=== PATIENT | female | born 1980 | race Caucasian/White ===

== ENCOUNTER → 2019-06-17 13:14 | Outpatient (CLI) | payer BC, SELFPAY ==
--- NOTE | 2019-06-17 13:45 | MRI_ITS ---
STUDY: MRI BRAIN WITH AND WITHOUT CONTRAST (ATTENTION INTERNAL AUDITORY CANALS - I.A.C.'s) REASON FOR EXAM: Female, 39 years old. Dizziness, headache, right hearing loss TECHNIQUE: Standardized multiplanar fat and water weighted pulse sequences were obtained. 13 IV Dotarem was administered for the contrast portion of the examination. COMPARISON: None. FINDINGS: Normal bilateral temporal bones. Normal bilateral internal auditory canals. There is no demonstrated intracanalicular or cisternal vestibular schwannoma (acoustic neuroma). There is no enhancement of the bilateral VIIth or VIIIth cranial nerves. Normal bilateral cochlea, vestibules and semicircular canals. Normal size of the ventricles and extra-axial spaces for the patient's age. Normal white matter tracts of the supratentorial brain. There is no evidence for recent intracranial ischemia or other cause of cytotoxic edema on diffusion weighted imaging (DWI). Normal bilateral basal ganglia. Normal thalami. Normal flow voids within the major intracranial circulation suggesting patency by spin echo criteria. Normal venous enhancement. There is no enhancing intra-axial or extra-axial abnormality. There is no extra-axial fluid accumulation. Normal sella turcica, pituitary gland, infundibular stalk, optic chiasm and hypothalamus. Normal tectal plate and pineal gland. Normal midbrain, rory and medulla. Normal cerebellum. Normal basal cisterns. No demonstrated orbital abnormality, within the constraints of a routine brain study. Normal visualized paranasal sinuses. Normal calvarium and skull base. Normal visualized soft tissue structures. Normal visualized upper cervical spine. MRI/Brain W/WO Contrast IMPRESSION: Normal unenhanced and enhanced MRI of the bilateral internal auditory canals (I.A.C's). Electronically Signed: Marco Santiago MD at 16:36 EDT Tel , Service support ,
== END ==
PROVIDERS: Family Provider Preventive Medicine Occupational Medicine; PCP Preventive Medicine Occupational Medicine; Referring Provider Otolaryngology; Visit Provider Otolaryngology
DX: R42 Dizziness and giddiness (principal)
CPT/HCPCS: 70553; A9575

== ENCOUNTER → 2020-10-23 11:19 | Outpatient (CLI) | payer OTHER, SELFPAY ==
[2020-10-23 11:12] VITALS: BMI 23.1
[2020-10-23 12:56] LABS: Absolute Lymphocyte Count 1.71 X10^3/uL (0.83-4.51); Absolute Neutrophil Count 2.8 X10^3/uL (2.0-7.7); Basophil# 0.05 X10^3/uL; Eosinophil# 0.21 X10^3/uL; Hematocrit 42.6 % (37-47); Lymphocyte # 1.71 X10^3/ul (4.0); Lymphocyte % 32.6 % (19-41); Mean Corp Hgb Conc 32.9 g/dL (32-36); Mean Corpuscular Hgb 29.5 pg (27.0-32.0); Mean Corpuscular Volume 89.7 fL (81-99); Mean Platelet Vol. 11.1 fl (6.2-12.0); Monocyte# 0.47 X10^3/uL; NRBC Flagged by Analyzer 0 % (0-5); Neutrophil % 53.4 % (47-70); Platelet Count 330 K/mm3 (150-450); RBC Distribution Width CV 12.3 % (11.6-14.6); RBC Distribution Width SD 41.1 fl (35.1-43.9); Red Blood Count 4.75 M/mm3 (4.2-5.4); White Blood Count 5.2 K/mm3 (4.4-11.0)
[2020-10-23 13:29] LABS: ALB/GLOB Ratio 1.1 RATIO (0.9-2.4); AST(SGOT) 15 U/L (15-37); Alanine Aminotransfer ALT/SGPT 16 U/L (13-56); Albumin, Serum 4.1 g/dL (3.2-5.0); Alkaline Phosphatase 60 U/L (45-117); Anion Gap 2 (5-15); BUN 11 mg/dL (7-18); BUN/Creat Ratio 11.2 RATIO (10-20); Calcium,Total 8.9 mg/dL (8.5-10.1); Chloride 109 mmol/L (98-107); Creatinine, Serum 0.98 mg/dL (0.55-1.02); EST Glomerular Filtration Rate 66 mL/min (>60); Est Glom Filt Rate - Afr Amer 79 mL/min (>60); Globulin 3.6 g/dL (2.2-4.2); Glucose 79 mg/dL (74-106); Potassium 3.9 mmol/L (3.5-5.1); Protein, Total 7.7 g/dL (6.4-8.2); Sodium Level 140 mmol/L (136-145); T4 Free Direct 0.86 ng/dL (0.76-1.46); Thyroid Stim Hormone (TSH) 1.07 uIU/mL (0.358-3.74)
== END ==
PROVIDERS: PCP Internal Medicine; Referring Provider Internal Medicine; Visit Provider Internal Medicine
DX: F32.9 Major depressive disorder, single episode, unspecified (principal); F41.9 Anxiety disorder, unspecified
CPT/HCPCS: 36415; 80053; 84439; 84443; 85025

== ENCOUNTER 2020-12-28 14:49 | Outpatient (RCR) | payer OTHER, SELFPAY ==
[2020-10-23 11:12] VITALS: BMI 23.1
== END 2021-03-12 23:59 ==
LOC: IMMUN 14:49
PROVIDERS: PCP Internal Medicine; Visit Provider Family Medicine
DX: Z23 Encounter for immunization (principal)
CPT/HCPCS: 0001A; 0002A; 91300

== ENCOUNTER → 2021-05-08 15:48 | Outpatient (CLI) | payer OTHER, SELFPAY ==
[2021-05-08 15:25] VITALS: BMI 24.0
--- NOTE | 2021-05-08 16:18 | RAD_ITS ---
STUDY: X-RAY - CERVICAL SPINE REASON FOR EXAM: Female, 41 years old. Cervical radiculopathy TECHNIQUE: 3 view(s) of the cervical spine were obtained. COMPARISON: None FINDINGS: Normal anterior atlantoaxial articulation. Normal odontoid process. Normal cervical lordosis. Normal vertebral bodies and endplates. Normal disc space heights. Normal visualized intervertebral neuroforamina. The soft tissue structures are unremarkable. RAD/Cerv Spine 2 or 3 Views IMPRESSION: Normal x-ray examination of the visualized cervical spine. Electronically Signed: Emiele Veloz MD at 13:44 EDT Tel , Service support ,
--- NOTE | 2021-05-08 16:20 | RAD_ITS ---
STUDY: X-RAY - RIGHT SHOULDER REASON FOR EXAM: Female, 41 years old. Right Shoulder Pain TECHNIQUE: 4 view(s) of the shoulder. COMPARISON: None. FINDINGS: Normal glenohumeral articulation. Normal acromioclavicular joint. Normal acromion. Normal humeral head and visualized proximal humerus. The soft tissue structures are unremarkable. Normal visualized pulmonary apex. RAD/Shoulder min 2 Views IMPRESSION: Normal x-ray examination of the shoulder. Electronically Signed: Emilee Vleoz MD at 13:45 EDT Tel , Service support ,
[2021-05-08 17:02] LABS: Absolute Lymphocyte Count 1.45 X10^3/uL (0.83-4.51); Absolute Neutrophil Count 3.9 X10^3/uL (2.0-7.7); Basophil# 0.05 X10^3/uL; Basophil% 0.8 % (0-1); Eosinophil# 0.08 X10^3/uL; Eosinophils% 1.4 % (0-5); Hematocrit 38.6 % (37-47); Hemoglobin 12.7 g/dL (12.0-15.0); Lymphocyte # 1.45 X10^3/ul (0.83-4.51); Lymphocyte % 24.5 % (19-41); Mean Corp Hgb Conc 32.9 g/dL (32-36); Mean Corpuscular Hgb 29.7 pg (27.0-32.0); Mean Corpuscular Volume 90.4 fL (81-99); Mean Platelet Vol. 10.9 fl (6.2-12.0); Monocyte# 0.46 X10^3/uL; Monocyte% 7.8 % (0-10); NRBC Flagged by Analyzer 0 % (0-5); Neutrophil # 3.86 X10^3/uL (2.7-7.7); Neutrophil % 65.2 % (47-70); Platelet Count 316 K/mm3 (150-450); RBC Distribution Width CV 12.7 % (11.6-14.6); RBC Distribution Width SD 41.8 fl (35.1-43.9); Red Blood Count 4.27 M/mm3 (4.2-5.4); White Blood Count 5.9 K/mm3 (4.4-11.0)
[2021-05-08 17:30] LABS: ALB/GLOB Ratio 1.4 RATIO (0.9-2.4); AST(SGOT) 19 U/L (15-37); Alanine Aminotransfer ALT/SGPT 21 U/L (13-56); Albumin, Serum 4.2 g/dL (3.2-5.0); Alkaline Phosphatase 62 U/L (45-117); Anion Gap 6 (5-15); BUN 13 mg/dL (7-18); BUN/Creat Ratio 13.1 RATIO (10-20); Calcium,Total 8.6 mg/dL (8.5-10.1); Chloride 108 mmol/L (98-107); Creatinine, Serum 0.99 mg/dL (0.55-1.02); EST Glomerular Filtration Rate 65 mL/min (>60); Est Glom Filt Rate - Afr Amer 78 mL/min (>60); Globulin 3.1 g/dL (2.2-4.2); Glucose 83 mg/dL (74-106); Potassium 3.3 mmol/L (3.5-5.1); Protein, Total 7.3 g/dL (6.4-8.2); Sodium Level 139 mmol/L (136-145)
== END ==
PROVIDERS: PCP Internal Medicine; Referring Provider Internal Medicine; Visit Provider Internal Medicine
DX: M54.12 Radiculopathy, cervical region (principal); M25.511 Pain in right shoulder; F32.9 Major depressive disorder, single episode, unspecified; F41.9 Anxiety disorder, unspecified
CPT/HCPCS: 36415; 72040; 73030; 80053; 85025

== ENCOUNTER → 2021-05-23 16:08 | Outpatient (CLI) | payer OTHER, SELFPAY ==
[2021-05-08 15:25] VITALS: BMI 24.0
--- NOTE | 2021-05-23 16:11 | BI_ITS ---
MAMMOGRAPHY - BILATERAL SCREENING REASON FOR EXAM: Female, 41 years old. Routine annual screening examination. PERTINENT HISTORY: Grandmother with breast cancer. Occasional lateral left breast tenderness. TECHNIQUE: Digital bilateral breast anshu (3D mammographic acquisition) in the CC and MLO projections. 2-D mediolateral oblique (MLO) and craniocaudad (CC) views of both breasts were obtained. CAD: Full Field Digital Mammography with Computer Added Detection was performed. COMPARISON: Comparison is made with prior study dated 01/21/2017. FINDINGS: Breast Composition: The breasts are heterogeneously dense, which may obscure small masses. There are no dominant masses or suspicious calcifications. Stable small benign appearing bilateral axillary lymph nodes. No other significant abnormalities are identified. There has been no significant change since the prior study. BI/SCRN MAMM (CAD)W/ANSHU BILAT IMPRESSION: Stable bilateral screening mammogram. Yearly follow-up mammogram recommended. (A) ASSESSMENT CATEGORY: BIRADS Category 2: Benign. A letter regarding these results will be sent to the patient by the facility within 30 days. Approximately 10% of breast cancers are not detected by mammography. A normal mammogram should not delay biopsy of a clinically suspicious abnormality. [id number] Electronically Signed: Toni Simon MD at 8:24 EDT , Service support ,
== END ==
PROVIDERS: PCP Internal Medicine; Referring Provider Internal Medicine; Visit Provider Internal Medicine
DX: Z12.31 Encounter for screening mammogram for malignant neoplasm of breast (principal); Z80.3 Family history of malignant neoplasm of breast
CPT/HCPCS: 77063; 77067

== ENCOUNTER → 2021-08-14 16:21 | Outpatient (CLI) | payer OTHER, SELFPAY ==
[2021-08-14 18:17] LABS: Anion Gap 6 (5-15); BUN 7 mg/dL (7-18); BUN/Creat Ratio 7.1 RATIO (10-20); Chloride 106 mmol/L (98-107); Creatinine, Serum 0.99 mg/dL (0.55-1.02); EST Glomerular Filtration Rate 65 mL/min (>60); Est Glom Filt Rate - Afr Amer 79 mL/min (>60); Glucose 79 mg/dL (74-106); Potassium 3.5 mmol/L (3.5-5.1); Sodium Level 139 mmol/L (136-145)
== END ==
PROVIDERS: PCP Internal Medicine; Referring Provider Internal Medicine; Visit Provider Internal Medicine
DX: E87.6 Hypokalemia (principal)
CPT/HCPCS: 36415; 80048

== ENCOUNTER → 2021-09-04 | Outpatient (CLI) | payer OTHER, SELFPAY | END | disposition home or self-care (01) | LOC: LABSPEC 13:03 | PROVIDERS: PCP Internal Medicine; Visit Provider Physician Assistant | DX: Z11.52 Encounter for screening for COVID-19 (principal) | CPT/HCPCS: 87635; U0005; U0003 ==

== ENCOUNTER → 2022-02-25 | Outpatient (CLI) | payer BC, OTHER, SELFPAY ==
[2022-02-25 16:34] LABS: Absolute Lymphocyte Count 1.82 X10^3/uL (0.83-4.51); Absolute Neutrophil Count 3.3 X10^3/uL (2.0-7.7); Basophil# 0.04 X10^3/uL; Basophil% 0.7 % (0-1); Eosinophil# 0.12 X10^3/uL; Eosinophils% 2.1 % (0-5); Hematocrit 38.8 % (37-47); Hemoglobin 12.8 g/dL (12.0-15.0); Lymphocyte # 1.82 X10^3/ul (0.83-4.51); Lymphocyte % 31.7 % (19-41); Mean Corpuscular Hgb 30.2 pg (27.0-32.0); Mean Corpuscular Volume 91.5 fL (81-99); Mean Platelet Vol. 10.9 fl (6.2-12.0); Monocyte# 0.42 X10^3/uL; Monocyte% 7.3 % (0-10); NRBC Flagged by Analyzer 0 % (0-5); Neutrophil # 3.33 X10^3/uL (2.7-7.7); Platelet Count 304 K/mm3 (150-450); RBC Distribution Width CV 12.3 % (11.6-14.6); RBC Distribution Width SD 40.9 fl (35.1-43.9); Red Blood Count 4.24 M/mm3 (4.2-5.4); White Blood Count 5.7 K/mm3 (4.4-11.0)
[2022-02-25 20:57] LABS: ALB/GLOB Ratio 1.1 RATIO (0.9-2.4); AST(SGOT) 20 U/L (15-37); Alanine Aminotransfer ALT/SGPT 18 U/L (13-56); Albumin, Serum 3.9 g/dL (3.2-5.0); Alkaline Phosphatase 60 U/L (45-117); Anion Gap 7 (5-15); BUN 10 mg/dL (7-18); BUN/Creat Ratio 8.8 RATIO (10-20); Calcium,Total 8.8 mg/dL (8.5-10.1); Chloride 107 mmol/L (98-107); Creatinine, Serum 1.13 mg/dL (0.55-1.02); EST Glomerular Filtration Rate 56 mL/min (>60); Est Glom Filt Rate - Afr Amer 67 mL/min (>60); Globulin 3.4 g/dL (2.2-4.2); Glucose 113 mg/dL (74-106); Potassium 3.5 mmol/L (3.5-5.1); Protein, Total 7.3 g/dL (6.4-8.2); Sodium Level 140 mmol/L (136-145); T4 Free Direct 0.77 ng/dL (0.76-1.46); Thyroid Stim Hormone (TSH) 1.14 uIU/mL (0.358-3.74)
== END | disposition home or self-care (01) ==
LOC: BIMLAB 15:26
PROVIDERS: PCP Internal Medicine; Referring Provider Internal Medicine; Visit Provider Internal Medicine
DX: R53.82 Chronic fatigue, unspecified (principal); Z13.29 Encounter for screening for other suspected endocrine disorder
CPT/HCPCS: 36415; 80053; 84439; 84443; 85025

== ENCOUNTER → 2022-04-01 | Outpatient (CLI) | payer OTHER, SELFPAY ==
[2022-04-01 16:42] LABS: Anion Gap 5 (5-15); BUN 15 mg/dL (7-18); BUN/Creat Ratio 14.6 RATIO (10-20); Calcium,Total 8.9 mg/dL (8.5-10.1); Chloride 107 mmol/L (98-107); Creatinine, Serum 1.03 mg/dL (0.55-1.02); EST Glomerular Filtration Rate 62 mL/min (>60); Est Glom Filt Rate - Afr Amer 75 mL/min (>60); Glucose 98 mg/dL (74-106); Potassium 3.6 mmol/L (3.5-5.1); Sodium Level 139 mmol/L (136-145)
== END | disposition home or self-care (01) ==
PROVIDERS: PCP Internal Medicine; Referring Provider Internal Medicine; Visit Provider Internal Medicine
DX: N17.9 Acute kidney failure, unspecified (principal)
CPT/HCPCS: 36415; 80048

== ENCOUNTER → 2022-05-27 | Outpatient (CLI) | payer OTHER, SELFPAY ==
--- NOTE | 2022-05-27 15:34 | BI_ITS ---
MAMMOGRAPHY - BILATERAL SCREENING REASON FOR EXAM: Female, 42 years old. Routine annual screening examination. PERTINENT HISTORY: Grandmother with breast cancer. TECHNIQUE: Digital bilateral breast anshu (3D mammographic acquisition) in the CC and MLO projections. 2-D mediolateral oblique (MLO) and craniocaudad (CC) views of both breasts were obtained. CAD: Full Field Digital Mammography with Computer Added Detection was performed. COMPARISON: Comparison is made with prior study 05/23/2021 and 01/21/2017. FINDINGS: Breast Composition: The breasts are heterogeneously dense, which may obscure small masses. There are no dominant masses or suspicious calcifications. Stable small benign-appearing bilateral axillary lymph nodes. No other significant abnormalities are identified. There has been no significant change since the prior study. BI/SCRN MAMM (CAD)W/ANSHU BILAT IMPRESSION: Stable bilateral screening mammogram. Yearly follow-up mammogram recommended. (A) ASSESSMENT CATEGORY: BIRADS Category 2: Benign. A letter regarding these results will be sent to the patient by the facility within 30 days. Approximately 10% of breast cancers are not detected by mammography. A normal mammogram should not delay biopsy of a clinically suspicious abnormality. [id number] Electronically Signed: Toni Simon MD at 7:58 EDT ,
== END | disposition home or self-care (01) ==
LOC: OPBI 15:32
PROVIDERS: PCP Internal Medicine; Visit Provider Internal Medicine
DX: Z12.31 Encounter for screening mammogram for malignant neoplasm of breast (principal); Z80.3 Family history of malignant neoplasm of breast
CPT/HCPCS: 77063; 77067

== ENCOUNTER 2022-12-29 14:03 | Emergency (ER) | payer OTHER, SELFPAY ==
[2022-12-29 14:04] VITALS: BP 151/105; PULSE 109; RESP 22; TEMP 36.8; O2SAT 99; BMI 25.9
[2022-12-29] MEDS: Ketorolac 15 MG/ML Vial IV (16:30)
[2022-12-29 16:49] LABS: Absolute Lymphocyte Count 1.17 X10^3/uL (0.83-4.51); Absolute Neutrophil Count 3.2 X10^3/uL (2.0-7.7); Basophil# 0.04 X10^3/uL; Basophil% 0.8 % (0-1); Eosinophil# 0.18 X10^3/uL; Eosinophils% 3.6 % (0-5); Hematocrit 40.2 % (37-47); Hemoglobin 13.5 g/dL (12.0-15.0); Lymphocyte # 1.17 X10^3/ul (0.83-4.51); Lymphocyte % 23.3 % (19-41); Mean Corp Hgb Conc 33.6 g/dL (32-36); Mean Corpuscular Hgb 29.8 pg (27.0-32.0); Mean Corpuscular Volume 88.7 fL (81-99); Mean Platelet Vol. 9.8 fl (6.2-12.0); Monocyte# 0.44 X10^3/uL; Monocyte% 8.7 % (0-10); NRBC Flagged by Analyzer 0 % (0-5); Neutrophil # 3.19 X10^3/uL (2.7-7.7); Neutrophil % 63.4 % (47-70); Platelet Count 316 K/mm3 (150-450); RBC Distribution Width CV 12.1 % (11.6-14.6); RBC Distribution Width SD 39.5 fl (35.1-43.9); Red Blood Count 4.53 M/mm3 (4.2-5.4)
[2022-12-29 16:57] LABS: Anion Gap 3 (5-15); BUN 12 mg/dL (7-18); BUN/Creat Ratio 12.3 RATIO (10-20); Calcium,Total 8.7 mg/dL (8.5-10.1); Chloride 111 mmol/L (98-107); Creatinine, Serum 0.97 mg/dL (0.55-1.02); EST Glomerular Filtration Rate 66 mL/min (>60); Est Glom Filt Rate - Afr Amer 80 mL/min (>60); Estimated Creatinine Clearance 69.29 ml/min; Glucose 82 mg/dL (74-106); Potassium 3.8 mmol/L (3.5-5.1); Sodium Level 141 mmol/L (136-145)
[2022-12-29] MEDS: Morphine 4 MG/ML Syringe IV (18:12)
--- NOTE | 2022-12-29 18:32 | MRI_ITS ---
EXAM: MR HEAD WITHOUT AND WITH INTRAVENOUS CONTRAST CLINICAL INDICATION: Headache, blurred vision, paresthesia right, probl -- Also problem with balance TECHNIQUE: Multiplanar and multisequence MR images of the brain were obtained without and with intravenous contrast. This report was created using [employer] report generation technology. CONTRAST: IV CLARISCAN 14mL COMPARISON: 06.17.19 FINDINGS: BRAIN AND EXTRA-AXIAL SPACES: Unremarkable. No intra- or extra-axial hemorrhage. No evidence of acute infarct. No intracranial mass or mass effect. There is preservation of the juan/white matter interface. Posterior fossa structures are unremarkable. Ventricles are appropriate for age. No hydrocephalus. Basal cisterns are patent. SELLA: Unremarkable. Normal sella turcica, pituitary gland, infundibular stalk, optic chiasm and hypothalamus. AUDITORY SYSTEM: Unremarkable. The internal auditory canals are patent. BONES/JOINTS: Unremarkable. No discrete lytic or blastic abnormalities. SINUSES: Unremarkable as visualized. Clear. MASTOID AIR CELLS: Unremarkable as visualized. Clear. ORBITS: Unremarkable as visualized. Both globes, extraocular muscles, optic nerves and retrobulbar fat appear unremarkable. VASCULATURE: Unremarkable as visualized. Normal flow voids in the major intracranial circulation. MRI/Brain W/WO Contrast IMPRESSION: Negative MRI brain without and with intravenous contrast. Electronically Signed: Ed Angel MD at 19:49 EDT ,
--- NOTE | 2022-12-29 18:49 | EDS_ITS ---
HPI History of Present Illness Chief Complaint: Headache Detail of Chief Complaint: Global headache with blurred vision, numbness right side of face and arm Informant: patient and parent Onset/Context/Timing Onset: Days (Onset last Thursday) Context: Gradual Timing: Continuous and Waxes and wanes Quality -Headache: Positive for Dull and Throbbing Location: Global Current Severity: Severe Maximum Severity: Severe Worsened by: Nothing Relieved by: Nothing Associated Symptoms/Injury Associated Symptoms: Positive for Nausea, Numbness, Tingling and Blurred Vision; Negative for Fever, Vomiting, Sore Throat, Sinus Pressure, Preceding Aura, Visual Changes, Photophobia or Visual Loss Injury - MARTINEZ: Negative for Direct Trauma Narrative Narrative: Patient is a 42-year-old woman with history of migraine headaches. She took her medication for migraine on Thursday with no relief. She repeated the dose 2 days later. On Thursday she was seen in urgent care. She was treated with high dose of ibuprofen and Benadryl. She contacted the urgent care provider on Thursday who prescribed a muscle relaxant. She called back and states she still has a headache. She was instructed to come to the emergency department. Patient's never had imaging to evaluate her diagnosis of migraine headaches. She has never had bilateral blurred vision or tingling right side of face and right arm.. She also reports problems with balance the past couple of days. She denies trouble with speech or swallowing. She does report tinnitus bilate rally. She denies neck pain or neck stiffness. She denies photophobia or sonophobia. She does endorse nausea. She denies vomiting or diarrhea. She denies history of trauma. She has not noted a rash. Prior similar symptoms: No Recent Illness/Hospitalization: Yes [facility] Medical History CLAUDIA (acute kidney injury) Anxiety Cervical radiculopathy Chronic fatigue Depression Elevated blood pressure reading Endometriosis Health care maintenance History of gestational diabetes History of spontaneous Hypoglycemia Hypokalemia Migraines Right shoulder pain Screening for thyroid disorder Vitamin deficiency Home Medications alprazolam 0.25 mg tablet (Xanax) 0.25 mg PO DAILY PRN anxiety #30 tabs 02/12/22 [Rx Last Taken Unknown] amitriptyline 25 mg tablet 25 mg PO DAILY #90 tabs 02/12/22 [Rx Last Taken Unknown] paroxetine HCl 20 mg tablet (Paxil) 20 mg PO DAILY #90 tabs 02/12/22 [Rx Last Taken Unknown] topiramate 50 mg tablet 50 mg PO QHS #90 tabs 02/12/22 [Rx Last Taken Unknown] rizatriptan 10 mg tablet 10 mg PO ONCE PRN migraine headache #14 tabs 04/14/22 [Rx Last Taken Unknown] naproxen 500 mg tablet 500 mg PO BID PRN migraine headache #180 tabs 12/29/22 [Rx Last Taken Unknown] Allergy/AdvReac Type Severity Reaction Status Date / Time Penicillins Allergy Hives Verified 12/29/22 14:07 Family History Grandmother Breast cancer Father Anxiety and depression Diabetes Sister Cancer leukemia Mother Diabetes Hypertension Kidney disease Hyperlipemia CVA (cerebral vascular accident) Other Migraines Surgical History History of partial hysterectomy History of varicose vein stripping Social History Smoking Status: Current every day smoker tobacco type: cigarettes Tobacco: How many years used: 22 alcohol intake: current alcohol intake frequency: a few times a month Alcohol type: wine substance use type: does not use what type of physical activity do you participate in: walking frequency: 1-2 times per week ROS ROS ED Constitutional Constitutional ED: Denies chills, fever(s), subjective, sweats or weight loss Eyes Eyes: Reports blurry vision bilateral; Denies change in vision or diplopia ENT ENT ED: Reports other Details: Bilateral tinnitus ; Denies ear pain, rhinorrhea or sore throat Cardiovascular Cardiovascular: Denies chest pain, orthopnea, palpitations, paroxysmal nocturnal dyspnea or racing heartbeat Respiratory/Chest Respiratory/Chest: Denies cough, dyspnea, dyspnea on exertion, orthopnea, p aroxysmal nocturnal dyspnea or sputum Gastrointestinal Gastrointestinal: Reports nausea; Denies abdominal pain, constipation, diarrhea, melena or vomiting Genitourinary Genitourinary ED: Reports other Details: Status post hysterectomy and bilateral salpingectomy ; Denies dysuria, hematuria or urinary frequency Musculoskeletal Musculoskeletal: Denies arthralgias, back pain, myalgias or neck pain Integumentary Denies abscess, Abrasions or rash Neurologic Neurologic: Reports headache(s) and paresthesias; Denies weakness Psychiatric Psychiatric: Denies anxiety or depression Endocrine Endocrinology: Denies polydipsia, polyphagia or polyuria EXAM Physical Exam Const Vital Signs: 12/29/22 14:04 12/29/22 21:00 Temperature 98.2 F Temperature Source Temporal Pulse Rate 109 H 87 Respiratory Rate 22 H 18 Blood Pressure 151/105 H 144/72 H Blood Pressure Mean 120 96 Pulse Ox 99 97 Oxygen Delivery Method Room Air Room Air Positive well nourished and well developed General Appearance ED: well developed and NAD; Negative for cyanotic, diaphoretic or pallor HEENT Reports normocephalic, TM's clear and moist mucous membranes HEENT Narrative: Nares patent with no discharge. Posterior pharynx is normal. atraumatic; Negative for temporal artery tenderness or vesicular rash Face and Sinus: Negative for sinus tenderness Tympanic Membrane ED: Yes TM's clear Eyes PERRL Eyes Narrative: There is no photophobia. Cup-to-disc ratio was normal. There is no papilledema. There is no nystagmus. General Eye ED: Negative for pale conjunctiva or scleral icterus Neck no lymphadenopathy, supple, no meningeal signs and no JVD Resp normal respiratory effort and clear to auscultation bilaterally Cardio regular rate, regular rhythm, S1 normal heart sound, S2 normal heart sound and no murmurs GI non-tender Auscultation: normoactive bowel sounds Palpation: soft; Negative for hepatomegaly or splenomegaly Back/Spine no CVA tenderness Cervical Spine: Negative for cervical spine tenderness Thoracic Spine / Upper Back: Negative for thoracic spinal tenderness Lumbar Spine / Lower Back: Negative for lumbar spinal tenderness Extremity normal to inspection, full ROM and normal capillary refill General Extremety ED: Negative for edema or tenderness General Extremity: Negative for edema Neuro oriented x3, CN's II-XII intact bilaterally and no sensory deficits noted Neuro Narrative: Romberg with eyes open and closed normal. The eye askew test was negative. The hints test was negative. Gait observed and normal. Able to walk on heels and toes. Patient did have mild difficulty with tandem gait. Gait was not aced. DTRs 2-3+ bicep, brachialis, triceps, patella and ankle and symmetric. There wa s no clonus or Babinski side noted right or left. [place] Coma Scale: document GCS findings Spontaneous Obeys Commands Oriented 15 Sensorium / Orientation: awake and alert Speech: speech normal Gait (Neuro): normal gait Motor Exam: strength 5/5 throughout Psych mental status grossly normal Skin General Skin Exam: elasticity normal and turgor normal; Negative for jaundice or pallor Lesions: no lesions Rashes: no rashes MDM MDM MDM Narrative Medical decision making narrative: Frontal diagnosis would include ocular migraine, neurologic migraine, doubt sinusitis. Need to consider brain mass. Doubt subarachnoid hemorrhage. Appr opriate blood work was ordered. CT was not ordered. Ordered an MRI with and without contrast. History & Record Review Discussion w/independent historian: Patient and Significant other Additional record(s) reviewed:: Prior outpatient record (Records from urgent care were reviewed. What patient told me is what was documented.) Lab Data Attestation: I reviewed the patient's lab results. Lab results narrative: Blood work is unremarkable. Labs: Laboratory Results - last 24 hr 12/29/22 12/29/22 16:25 16:25 WBC 5.0 RBC 4.53 Hgb 13.5 Hct 40.2 MCV 88.7 MCH 29.8 MCHC 33.6 RDW Std Deviation 39.5 RDW Coeff of Jonny 12.1 Plt Count 316 MPV 9.8 Immature Gran % (Auto) 0.200 Neut % (Auto) 63.4 Lymph % (Auto) 23.3 [place] % (Auto) 8.7 Eos % (Auto) 3.6 Baso % (Auto) 0.8 Absolute Neuts (auto) 3.2 Absolute Lymphs (auto) 1.17 Nucleated RBC % 0 Sodium 141 Potassium 3.8 Chloride 111 H Carbon Dioxide 27.0 Anion Gap 3 L BUN 12 Creatinine 0.97 Estim Creat Clear Calc 69.29 Est GFR (MDRD) Af Amer 80 Est GFR (MDRD) Non-Af 66 BUN/Creatinine Ratio 12.3 Glucose 82 Calcium 8.7 Radiography Diagnostic Testing: Clinical Impression(s) from Imaging Studies Brain MRI 12/29/22 18:32 IMPRESSION: Negative MRI brain without and with intravenous contrast. Electronically Signed: Ed Angel MD at 19:49 EDT , Treatment and Re-Evaluation Narrative: With a negative MRI with and without contrast suspect this is an intractable status migraine with paresis and ocular involvement. Will reevaluate to determine if patient needs more medication for headache. Patient states her headache has returned. She did have resolution after morphi ne. This may be a rebound headache from opiates. Now knowing that her MRI is unremarkable she will receive 25 mg of Benadryl IV push and 10 mg of Reglan IV push I was informed at 5104 the patient's headache resolved and she would like to go home. Discharge Plan Triage Chief Complaint: Headache ED Provider: Dwight Villa Dx/Rx/DC Orders Clinical Impression: Ocular migraine with status migrainosus, not intractable, Paresthesia of arm, Facial paresthesia Instructions: ED, Migraine (Classical) Prescriptions: No Action paroxetine HCl [Paxil] 20 mg tablet 20 mg PO DAILY Qty: 90 2RF amitriptyline 25 mg tablet 25 mg PO DAILY Qty: 90 2RF topiramate 50 mg tablet 50 mg PO QHS Qty: 90 2RF alprazolam [Xanax] 0.25 mg tablet 0.25 mg PO DAILY PRN (Reason: anxiety) Qty: 30 0RF rizatriptan 10 mg tablet 10 mg PO ONCE PRN (Reason: migraine headache) Qty: 14 2RF Rx Instructions: may repeat once after at least 2 hours naproxen 500 mg tablet 500 mg PO BID PRN (Reason: migraine headache) Qty: 180 2RF Primary Care Provider: Jaleel Martell Referrals: Jaleel Martell MD [Primary Care Provider] - 3-5 Days Disposition Disposition: Home, Self Care
[2022-12-29 21:00] VITALS: BP 144/72; PULSE 87; RESP 18; O2SAT 97
[2022-12-29] MEDS: Metoclopramide 10 MG/2 ML Vial IV (21:05)
[2022-12-29] MEDS: DiphenhydrAMINE 50 MG/ML Syringe 25 MG IV (21:05)
[2022-12-29 23:00] VITALS: PULSE 77; RESP 16; O2SAT 99
== END 2022-12-29 23:03 | disposition home or self-care (01) ==
PROVIDERS: Emergency Provider Emergency Medicine; PCP Internal Medicine; Visit Provider Emergency Medicine
DX: G43.901 Migraine, unspecified, not intractable, with status migrainosus (principal); R20.2 Paresthesia of skin; F17.210 Nicotine dependence, cigarettes, uncomplicated
CPT/HCPCS: 70553; 80048; 85025; 96374; 96375; 99283; A9575; A4216

== ENCOUNTER → 2023-06-22 | Outpatient (CLI) | payer OTHER, SELFPAY ==
--- NOTE | 2023-06-22 14:16 | RAD_ITS ---
STUDY: X-RAY - LEFT WRIST REASON FOR EXAM: Female, 43 years old. Left wrist pain TECHNIQUE: 3 view(s) of the wrist were obtained. COMPARISON: None. FINDINGS: Normal visualized distal radius and ulna. Findings suggestive of an old avulsion fracture of the ulnar styloid. Normal radiocarpal articulation. Normal distal radioulnar articulation. Normal carpal bones. Normal carpal articulations. Normal carpometacarpal articulation of the thumb. Normal second through fifth carpometacarpal articulations. Normal visualized metacarpal bones. The soft tissue structures are unremarkable. RAD/Wrist min 3 Views IMPRESSION: Findings suggestive of an old avulsion fracture of the ulnar styloid. Electronically Signed: Toni Simon MD at 14:43 EDT ,
== END | disposition home or self-care (01) ==
LOC: MTRAD 14:15
PROVIDERS: PCP Internal Medicine; Referring Provider Physician Assistant; Visit Provider Physician Assistant
DX: M25.532 Pain in left wrist (principal)
CPT/HCPCS: 73110

== ENCOUNTER → 2023-07-23 | Outpatient (CLI) | payer OTHER, SELFPAY ==
--- NOTE | 2023-07-23 06:35 | MRI_ITS ---
STUDY: MRI LEFT WRIST WITHOUT CONTRAST REASON FOR EXAM: Female, 43 years old. Left wrist sprain - pain ulnar side; injury 06/22/23. TECHNIQUE: Standardized fat and water weighted pulse sequences were obtained in all 3 orthogonal planes. COMPARISON: Left wrist radiographs dated 06/22/2023. FINDINGS: Normal visualized distal radius and ulna. Normal distal radioulnar articulation (DRUJ). There is central disc thinning of the triangular fibrocartilage (coronal T1 series 4 image 13). Normal carpal bones. Normal radiocarpal, intercarpal and midcarpal articulations. There is a 1.1 cm pisotriquetral synovial cyst (coronal STIR series 5 image 10). Normal visualized interosseous scapholunate ligament. Normal visualized dorsal (extrinsic) ligaments. Normal visualized volar (extrinsic) ligaments. Normal extensor tendons. Normal flexor tendons. Normal carpal tunnel with a normal median nerve. Normal carpometacarpal articulation of the thumb. Normal second through fifth carpometacarpal articulations. Normal visualized metacarpal bones. There is no demonstrated soft tissue abnormality. MRI/Upper Ext Joint Only(Routine) IMPRESSION: Central disc thinning of the triangular fibrocartilage. 1.1 cm pisotriquetral synovial cyst. Electronically Signed: Shorty Mayers MD at 8:12 EDT ,
== END | disposition home or self-care (01) ==
PROVIDERS: PCP Internal Medicine; Referring Provider Physician Assistant; Visit Provider Physician Assistant
DX: S63.502A Unspecified sprain of left wrist, initial encounter (principal); X58.XXXA Exposure to other specified factors, initial encounter
CPT/HCPCS: 73221

== ENCOUNTER 2023-09-23 15:00 | Outpatient (RCR) | payer OTHER, SELFPAY ==
--- NOTE | 2023-08-11 16:02 | HP.OTEVAL_ITS ---
Patient's Visit Information Visit Information Visit Information: YVONNE BAKER is a 43 year old F, referred to Occupational Therapy by Dr. Roderick Trujillo MD, with a diagnosis of left wrist sprain. Date of Evaluation: 08/11/23 Occupational Therapist: OFELIA Cruz/Nuno, CHT Subjective Subjective: This 43 year old female was seen for OT eval with dx of left wrist sprain- pt states date of injury was 06/22/23. pt states she works at a [employer] for 10/12 hours shifts- pt states she had swelling and pain; went to urgent care- x ray ok- indication of sprain- pt now arrives 7 week from date of injury c/o pain all the time. taking pain medication 800 mg of ibiprhin ( states takes pain level down some) pt is working light duty 8 hours a day 40 hours a week. 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 with ADLs by dc Goal:: pt will report no pain greater than 2/10 with use of left UE with ADLs and work tasks by d/c Goal:: pt will demo understanding of wrist ergo to avoid tendon/lig.stress on ulna side of wrist when performing ADLs and work tasks by d/c Rehabilitation General Assessment: pt demo with limited left wrist ROM /weakness and pain limiting use of left UE with ADLs and work tasks- pt would benefit from skilled OT services 2-3 -4-6/weeks to decrease pain increase ROM- ed. on wrist ergo and return pt to her PLOF. Today therapist ed pt on pain free ROM and weaning out of wrist brace. pt demo understanding and agree to POC. Rehabilitation Potential: Good Anticipated Interventions Anticipated Interventions: A/AAROM/PROM, Strengthening, Modalities, Orthoses, Joint Protection/Energy Conservation, Ergonomic Education, Education re assistive Equipment, Education re Diagnosis and Home Program Visit Plan Frequency: 2-3x /Week Duration: 6 Weeks General Plan: improve ROM wean out of brace strength as lorri ed. pt on wrist ergo TEXT: Thank you for the opportunity to evaluate your patient. For Medicare and Medicare HMO plans, please review the plan of care and approve it. It will need to be FAXED BACK to us at [phone] for Medicare purposes. Please let me know if there are questions or concerns regarding this plan of care. Physician Sig nature: Date:
--- NOTE | 2023-08-18 15:09 | HP.OTEVAL ---
Patient's Visit Information Visit Information Visit Information: YVONNE BAKER is a 43 year old F, referred to Occupational Therapy by Dr. Roderick Trujillo MD, with a diagnosis of left wrist sprain. Date of Evaluation: 08/11/23 Occupational Therapist: OFELIA Cruz/Nuno, CHT Subjective Subjective: This 43 year old female was seen for OT eval with dx of left wrist sprain- pt states date of injury was 06/22/23. pt states she works at a [employer] for 10/12 hours shifts- pt states she had swelling and pain; went to urgent care- x ray ok- indication of sprain- pt now arrives 7 week from date of injury c/o pain all the time. taking pain medication 800 mg of ibiprhin ( states takes pain level down some) pt is working light duty 8 hours a day 40 hours a week. 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 Pain left wrist: Current Pain Intensity: 2 Pain Intensity Range: 7 ROM Forearm: right/left WNL Wrist: right 65/75 left 50/45 ROM Comments: right RD [address] 15 UD 15 Strength Special Events Manager: right 80# left 5# Lateral Pinch: right 18# left 10# Tripod Pinch: right 16# left 4# Sensation Sensation Comments: denies Quick DASH-Disab of Arm,Shoulder& Hand Quick DASH Score: 28.5700 Goals Goal:: pt will demo a left vice president client services strength of 40# or greater to return to work at [employer] by d.c pt will demo a increase in left lateral and tripod pinch strength by 4# to increase pts ind, with ADLs and work tasks by d.c Goal:: pt will demo a increase in left wrist AROM by 30* to increase pts ind. with ADLs by dc Goal:: pt will report no pain greater than 2/10 with use of left UE with ADLs and work tasks by d/c Goal:: pt will demo understanding of wrist ergo to avoid tendon/lig.stress on ulna side of wrist when performing ADLs and work tasks by d/c Rehabilitation General Assessment: pt demo with limited left wrist ROM /weakness and pain limiting use of left UE with ADLs and work tasks- pt would benefit from skilled OT services 2-3 -4-6/weeks to decrease pain increase ROM- ed. on wrist ergo and return pt to her PLOF. Today therapist ed pt on pain free ROM and weaning out of wrist brace. pt demo understanding and agree to POC. Rehabilitation Potential: Good Anticipated Interventions Anticipated Interventions: A/AAROM/PROM, Strengthening, Modalities, Orthoses, Joint Protection/Energy Conservation, Ergonomic Education, Education re assistive Equipment, Education re Diagnosis and Home Program Visit Plan Frequency: 2-3x /Week Duration: 6 Weeks General Plan: improve ROM wean out of brace strength as lorri ed. pt on wrist ergo TEXT: Thank you for the opportunity to evaluate your patient. For Medicare and Medicare HMO plans, please review the plan of care and approve it. It will need to be FAXED BACK to us at [phone] for Medicare purposes. Please let me know if there are questions or concerns regarding this plan of care. Physician Signature: Date:
--- NOTE | 2023-09-23 15:49 | OTREVAL_ITS ---
Re-Evaluation Intro: Dr. Roderick Trujillo MD, It has been my pleasure to treat YVONNE BAKER over the last 12 visits for left wrist sprain. Please see the progress note below for an update on the occupational therapy plan of care! Subjective Subjective: pt arrives to session: states she has seen a increase in her function. still painful with supination/pronation 6-7/10 pain Objective Objective/Function: left wrist ROM 55/55 increase from 50/[address] 10 UD 25 supination 70* with discomfort increase from N pronation WNL left mva operator strength 40# left lateral pinch 10# same as eval left tripod pinch 14# increase from 4# pt has made gains but continues to demo symptoms of a ulnar sided wrist pain and with palpation batch or continuous still operator. 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 Plan Plan Frequency: 2-3x /Week Duration: 6 Weeks Visits in this POC: 6 weeks (2-3x week) Plan: pt to keep protected position with daily task wean out of brace for light activity isometric ex, Goals Goals Patient Goals: Decrease Pain, Use Hand/Wrist/Arm Normally Again and Be More Independent in ADLS Goal:: pt will demo a left mva operator strength of 65# or greater to return to work at [employer] by d.c pt will demo a increase in left lateral and tripod pinch strength by 4# to i ncrease pts ind, with ADLs and work tasks by d.c Goal:: pt will demo a increase in left wrist AROM by 30* to increase pts ind. with ADLs by dc (goal met) Goal:: pt will report no pain greater than 2/10 with use of left UE with ADLs and work tasks by d/c (progressing) Goal:: pt will demo understanding of wrist ergo to avoid tendon/lig.stress on ulna side of wrist when performing ADLs and work tasks by d/c ( progress ) Anticipated Interventions Anticipated Interventions Anticipated Interventions: A/AAROM/PROM, Strengthening, Triggerpoint Release, Modalities, Orthoses, Joint Protection/Energy Conservation, Ergonomic Education, Education re assistive Equipment, Education re Diagnosis and Home Program Re-Evaluation Ending Re-evaluation ending: Please do not hesitate to contact me at [phone] by phone or if you have questions or concerns regarding this new plan of care! Sincerely, Nena Evans, OTR/L, CHT
--- NOTE | 2024-01-13 15:24 | HP.OTDCSUM_ITS ---
Discharge Summary D/C Summary: It has been my pleasure to treat YVONNE BAKER under orders from Dr. Roderick Trujillo MD, for the diagnosis of left wrist sprain for a total of 12 visit(s). Please see the following information for a summary of their discharge status. 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 Goals Patient Goals: Decrease Pain, Use Hand/Wrist/Arm Normally Again and Be More Independent in ADLS Goal:: pt will demo a left armature balancer strength of 65# or greater to return to work at PLOF by d.c pt will demo a increase in left lateral and tripod pinch strength by 4# to increase pts ind, with ADLs and work tasks by d.c Goal:: pt will demo a increase in left wrist AROM by 30* to increase pts ind. with ADLs by dc (goal met) Goal:: pt will report no pain greater than 2/10 with use of left UE with ADLs and work tasks by d/c (progressing) Goal:: pt will demo understanding of wrist ergo to avoid tendon/lig.stress on ulna side of wrist when performing ADLs and work tasks by d/c ( progress ) Plan Plan: pt to keep protected position with daily task wean out of brace for light activity isometric ex, D/C Information d/c sentence: If there are questions or concerns regarding this patient's occupational therapy, please fell free to call me at [phone]. Thank you for the referral of this patient. Sincerely, Nena Evans, OTR/L, CHT
== END 2023-09-23 19:00 | disposition home or self-care (01) ==
LOC: OT 15:00
PROVIDERS: PCP Internal Medicine; Referring Provider Orthopaedic Surgery Sports Medicine; Visit Provider Orthopaedic Surgery Sports Medicine
DX: S63.502D Unspecified sprain of left wrist, subsequent encounter (principal)
CPT/HCPCS: 97035; 97110; 97140; 97165

== ENCOUNTER → 2023-10-08 | Outpatient (CLI) | payer OTHER, SELFPAY ==
[2023-10-08 15:30] LABS: Mucous, Urine 0 SEEN /hpf (<or=2+); Red Blood Cells-Urine 0 SEEN /hpf (0-5)
[2023-10-08 16:09] LABS: Color, Urine Yellow (Yellow); Glucose, Dipstick Normal (Normal); Ketone-Dipstick Negative (Negative); Leukocyte Esterase-Dipstick 500 /ul (Negative); Nitrite-Dipstick Negative (Negative); Occult Blood-Urine 10 /ul (Negative); Protein-Dipstick Negative (Negative); Urine Bilirubin Dipstick Negative (Negative); Urine Clarity Clear (Clear); Urine Urobilinogen Normal (Normal)
[2023-10-08 16:17] LABS: Bacteria RARE /hpf (None Seen); Squamous Epithelial Cells - UA 5-10 SEEN /hpf (5-10); White Blood Cells 25-50 SEEN /hpf (0-5)
--- OUTSIDE RECORDS SUMMARY | 2023-10-08 17:38 | XMS RPT_ITS | CCD ---
Author Name Unknown Address [address] [place] [address] Organization [facility] Care Team Providers Care Residential Driver Name Role Phone Margoth Sloan Unavailable Prashant Carolina Unavailable Florencio Eldridge Unavailable Naomi Burt Unavailable Unavailable Akilah Ulloa Unavailable Unavailable Mari Lee Unavailable Cardiac Nurse Practitioner, System Unavailable Unavailable Unavailable Unavailable Allergies Allergy Classification Reported Allergen(s) Allergy Type Date of Onset Reaction(s) Facility (1 source) Penicillins; Translations: [Penicillins] allergy to substance [facility] Work Phone: Medications Completed/Discontinued Medications Medication Drug Class(es) Dates Sig (Normalized) Sig (Original) acetaminophen 300 mg / HYDROcodone bitartrate 5 mg oral tablet (2 sources) Opioid Agonist Start: 07-21-2013 take 1 tablet by mouth every six hours as needed for pain VICODIN, 5-300MG (Oral Tablet) 1 Tablet Tablet 1 q6hrs prn pain for 0 days Quantity: 20 {Tablet} Refills: 0 Ordered: 18-Sep-2014 Margoth Sloan DO, DO, Kathleen Start : 21-Jul-2013 Active Problems Active Problems Problem Classification Problem Date Documented Da te Episodic/Chronic Administrative/social admission (1 source) Counseling procedure with explicit context; Translations: [Tobacco abuse counseling] 09-25-2014 Episodic Adverse effects of medical drugs (1 source) Other drug allergy; Translations: [Allergic drug reaction] 09-25-2014 Episodic Past or Other Problems Problem Classification Problem Date Documented Da te Episodic/Chronic Acute myocardial infarction (1 source) Acute myocardial infarction Headache; including migraine (1 source) Headache; including migraine Inflammation; infection of eye (except that caused by tuberculosis or sexually transmitteddisease) (1 source) Conjunctivitis, unspecified; Translations: [CONJUNCTIVITIS, NOS] Resolved: 03-14-2009 12-30-2012 Episodic Results Test Name Value Interpretation Reference Range Facil ity Vital Signs Date Time Vital Sign Value Performing Clinician Facility 09-25-2014 10:25-0500 BMI (Body Mass Index) 19.22 kg/m2 [facility] Work Phone: 09-25-2014 10:250500 Body Temperature 97.6 [degF] [facility] Work Phone: Encounters Encounter Date Encounter Type Care Provider Facility Start: 09-25-2014 End: 09-25-2014 Office outpatient visit 25 minutes [facility] Start: 09-18-2014 End: 09-18-2014 Office outpatient visit 15 minutes [facility] Start: 07-22-2013 End: 07-22-2013 Patient encounter procedure [facility] Start: 07-21-2013 End: 07-21-2013 Phone Encounter [facility] Start: 07-20-2013 End: 07-20-2013 Office outpatient visit 15 minutes [facility] Start: 02-04-2013 End: 02-04-2013 Patient encounter procedure [facility] Start: 02-02-2013 End: 02-02-2013 Patient encounter procedure [facility] Start: 01-31-2013 End: 01-31-2013 Office outpatient visit 25 minutes [facility] Start: 01-31-2013 End: 01-31-2013 Annotation/Addendum [facility] Start: 01-28-2013 End: 01-28-2013 Office outpatient visit 25 minutes [facility] Start: 12-30-2012 End: 12-30-2012 Patient encounter procedure [facility] Start: 08-05-2012 End: 08-06-2012 Patient encounter procedure [facility] Start: 03-24-2012 End: 03-24-2012 Patient encounter procedure Marg[facility] Sloan [facility] Start: 01-23-2012 End: 01-23-2012 Patient encounter procedure Margoth Sloan [facility] Start: 01-20-2012 End: 01-20-2012 Office outpatient visit 40 minutes Margoth Luther [facility] Start: 01-19-2012 End: 01-19-2012 Office outpatient visit 25 minutes Margoth Luther [facility] Start: 01-19-2012 End: 01-19-2012 Annotation/Addendum Marg[facility] Start: 01-02-2012 End: 01-02-2012 Office outpatient visit 25 minutes Margoth Luther [facility] Start: 10-07-2011 End: 10-07-2011 Phone Encounter [facility] Start: 10-01-2011 End: 10-01-2011 Office outpatient visit 25 minutes Margoth Luther [facility] Start: 07-21-2011 End: 07-21-2011 Patient encounter procedure Margoth Luther [facility] Start: 03-18-2011 End: 03-18-2011 Office outpatient visit 15 minutes Margoth Sloan [facility] Start: 12-13-2010 End: 12-13-2010 Office outpatient visit 25 minutes Margoth Luther [facility] Start: 12-06-2010 End: 12-06-2010 Office outpatient visit 25 minutes Margoth Luther [facility] Start: 07-17-2010 End: 07-18-2010 Patient encounter procedure [facility] Start: 03-08-2010 End: 03-08-2010 Office outpatient visit 10 minutes Margoth Sloan [facility] Start: 10-23-2009 End: 10-23-2009 Office outpatient visit 25 minutes Margoth Luther [facility] Start: 12-06-2008 End: 12-06-2008 Patient encounter procedure Margoth Luther [facility] Start: 12-06-2008 End: 12-06-2008 Historical Summary [facility] Procedures Date Procedure Procedure Detail Performing Clinician partial hysterectomy 04/2013 [facility] Naomi Burt Plan of Treatment Date Care Activity Detail Author Start: 09-25-2014 Procedure Education Eprescribed prescriptions (G8553) [facility] Work Phone: Start: 09-25-2014 Provider Instructions for Treatment Follow up if no improvement or if symptoms worsen [facility] Work Phone: Start: 09-18-2014 Procedure Education Eprescribed prescriptions (G8553) [facility] Work Phone: Start: 09-18-2014 Provider Instructions for Treatment [facility] Work Phone: Start: 07-22-2013 Provider Instructions for Treatment Reviewed Diagnostic Tests [facility] Work Phone: Start: 02-04-2013 Provider Instructions for Treatment [facility] Work Phone: Start: 01-31-2013 Provider Instructions for Treatment [facility] Work Phone: Start: 01-28-2013 Patient Education Sore throat: diagnosis and treatment [facility] Work Phone: Start: 01-28-2013 Provider Instructions for Treatment Follow up if no improvement or if symptoms worsen [facility] Work Phone: Start: 03-24-2012 Patient Education Low Blood Sugar (Hypoglycemia) *: blood sugar [facility] Work Phone: Start: 01-23-2012 Provider Instructions for Treatment [facility] Work Phone: Start: 01-20-2012 Provider Instructions for Treatment Follow up if no improvement or if symptoms worsen [facility] Work Phone: Start: 01-02-2012 Provider Instructions for Treatment [facility] Work Phone: Start: 10-01-2011 Provider Instructions for Treatment Follow up in 6 months [facility] Work Phone: Start: 03-18-2011 Provider Instructions for Treatment FOLLOW UP IN 6 MONTHS mec [facility] Work Phone: Start: 03-15-2011 25 hydroxy includes fractions if performed CALCIFEDIOL (32512) [facility] Work Phone: Start: 12-13-2010 Patient Education Low Blood Sugar (Hypoglycemia) *: blood glucose [facility] Work Phone: Start: 12-13-2010 Provider Instructions for Treatment [facility] Work Phone: Start: 12-06-2010 Provider Instructions for Treatment FOLLOW UP IN 1 WEEK [facility] Work Phone: Start: 12-06-2010 Glucose [Mass/Vol] Blood Glucose , Office ([id number]) [facility] Work Phone: Start: 12-06-2008 Provider Instructions for Treatment [facility] Work Phone: [facility] Work Phone: [facility] Work Phone: [facility] Work Phone: [facility] Work Phone: [facility] Work Phone: [facility] Work Phone: [facility] Work Phone: [facility] Work Phone: [facility] Work Phone: [facility] Work Phone: [facility] Work Phone: [facility] Work Phone: [facility] Work Phone: Payers Date Payer Category Payer Policy ID Unknown Social History Date Type Detail Facility Living Situation Living Situation [facility] Work Phone: Summary Purpose Family History Unknown Family Member Name Dates Details First Degree Relatives Comments:Diabetes, CAD Status:Active Advance Directives No Advanced Directives Records Found Instructions Name Dates Details How to access health informa tion online Indication:Otitis externa Start:25-Sep-2014 Instruction Type:Patient Education How to access health informa tion online - Detail Indication:Otitis externa Start:25-Sep-2014 Instruction Type:Patient Education Patient Instructions Indication:Otitis externa Start:25-Sep-2014 Instruction Type:Provider Instructions for Treatment Patient Instructions Indication:Ruptured varicosity Start:22-Jul-2013 Instruction Type:Provider Instructions for Treatment Patient Instructions Indication:Varicose vein of leg Start:20-Jul-2013 Instruction Type:Provider Instructions for Treatment Patient Instructions Indication:Headache Start:02-Feb-2013 Instruction Type:Provider Instructions for Treatment Patient Instructions Indication:Tobacco abuse counseling Start:28-Jan-2013 Instruction Type:Provider Instructions for Treatment Patient Instructions Indication:Allergic drug reaction Start:30-Dec-2012 Instruction Type:Provider Instructions for Treatment Additional Source Comments INFORMATION SOURCE (unrecogn ized section and content) FOR RECORDS PERTAINING TO PATIENTS WHO ARE OR HAVE BEEN ENROLLED IN A CHEMICAL DEPENDENCY/SUBSTANCEABUSE PROGRAM, SOME INFORMATION MAY BE OMITTED. This clinical summary was aggregated from multiple sources. Caution should be exercised in using it in the provision of clinical care. This summary normalizes information from multiple sources, and as a consequence, information in this document may materially change the coding, format and clinical context of patient data. In addition, data may be omitted in some cases. CLINICAL DECISIONS SHOULD BE BASED ON THE PRIMARY CLINICAL RECORDS. [facility]. provides no warranty or guarantee of the accuracy or completeness of information in this document.
== END | disposition home or self-care (01) ==
LOC: LABSPEC 15:13
PROVIDERS: PCP Internal Medicine; Referring Provider Physician Assistant Surgical; Visit Provider Physician Assistant Surgical
DX: R10.9 Unspecified abdominal pain (principal)
CPT/HCPCS: 81001; 87077; 87086; 87088; 87186

== ENCOUNTER 2023-10-11 11:55 | Emergency (ER) | payer OTHER, SELFPAY ==
[2023-10-11 11:57] VITALS: BP 138/91; PULSE 114; RESP 16; TEMP 36.7; O2SAT 98; BMI 25.8
--- NOTE | 2023-10-11 11:59 | EX.ED.DYSGE1 ---
HPI History of Present Illness Chief Complaint: Complaint Informant: patient Onset/Context/Timing Onset: Days (6) Context: Gradual Onset Timing: Continuous Quality: Aching, tingling Location: Low back and right flank Worsened by: Nothing Relieved by: Heating pad Narrative Narrative: Patient presents with low back pain that has been getting worse over the past 6 days. Patient states she went to the urgent care 3 days ago and was diagnosed with a urinary tract infection. Patient was started on Flexeril and Macrobid. Patient states her symptoms have not improved. Patient states her pain is starting to radiate up into her right flank area. Patient denies any dysuria or hematuria. Patient admits to some urinary urgency. Patient denies any fevers or chills. [facility] Medical History CLAUDIA (acute kidney injury) Anxiety Cervical radiculopathy Chronic fatigue Depression Elevated blood pressure reading Endometriosis Headache Health care maintenance History of gestational diabetes History of spontaneous Hypoglycemia Hypokalemia Left wrist sprain Migraines Right shoulder pain Screening for thyroid disorder Vitamin deficiency Home Medications alprazolam 0.25 mg tablet (Xanax) 0.25 mg PO DAILY PRN anxiety #30 tabs 02/12/22 [Rx Last Taken Unknown] naproxen 500 mg tablet 500 mg PO BID PRN migraine headache #180 tabs 12/29/22 [Rx Last Taken Unknown] amitriptyline 25 mg tablet 25 mg PO DAILY #90 tabs 02/27/23 [Rx Last Taken Unknown] paroxetine HCl 20 mg tablet (Paxil) 20 mg PO DAILY #90 tabs 02/27/23 [Rx Last Taken Unknown] erenumab-aooe 70 mg/mL subcutaneous auto-injector (Aimovig Autoinjector) 70 mg subcut QMONTH #1 mL 03/13/23 [Rx Last Taken Unknown] cyclobenzaprine 10 mg tablet 10 mg PO TID PRN muscle spasm 5 days #20 tabs 10/08/23 [Rx Last Taken Unknown] nitrofurantoin monohydrate/macrocrystals 100 mg capsule 1 cap PO Q12H 7 days #14 caps 10/08/23 [Rx Last Taken Unknown] hydrocodone-acetaminophen 5-325mg 5mg-325mg 1 tab PO Q6H PRN PRN Pain 3 days #10 TABLETS 10/11/23 [Rx Last Taken Unknown] Allergy/AdvReac Type Severity Reaction Status Date / Time Penicillins Allergy Hives Verified 10/08/23 11:54 Family History Grandmother Breast cancer Father Anxiety and depression Diabetes History of open heart surgery Sister Cancer leukemia Mother Diabetes Hypertension Kidney disease Hyperlipemia CVA (cerebral vascular accident) Other Migraines Surgical History History of partial hysterectomy History of varicose vein stripping Social History Smoking Status: Light Smoker (<10/day) Tobacco: How many years used: 22 Electronic Cigarette Use: with nicotine alcohol intake: current alcohol intake frequency: a few times a month Alcohol type: wine substance use type: does not use what type of physical activity do you participate in: walking frequency: 1-2 times per week ROS ROS ED Constitutional Constitutional ED: Denies chills or fever(s) Eyes Eyes: Reports blurry vision; Denies diplopia ENT ENT ED: Denies rhinorrhea or sore throat Cardiovascular Cardiovascular: Denies chest pain or palpitations Respiratory/Chest Respiratory/Chest: Denies cough or dyspnea Gastrointestinal Gastrointestinal: Denies nausea or vomiting Genitourinary Genitourinary ED: Denies dysuria or hematuria Musculoskeletal Musculoskeletal: Reports back pain; Denies neck pain Integumentary Denies abscess or rash Neurologic Neurologic: Denies headache(s) or weakness Allergic/Immunologic Allergic/Immunologic ED: Denies mouth swelling or urticaria EXAM Physical Exam Const Vital Signs: 10/11/23 11:57 Temperature 98.1 F Temperature Source Temporal Pulse Rate 114 H Respiratory Rate 16 Blood Pressure 138/91 H Blood Pressure Mean 106 Pulse Ox 98 Oxygen Delivery Method Room Air Positive well nourished and well developed General Appearance ED: well developed and NAD HEENT Reports moist mucous membranes Neck supple and no JVD Resp normal respiratory effort and clear to auscultation bilaterally Cardio regular rate and regular rhythm GI non-tender and non-distended Palpation: soft Back/Spine General Back: CVA tenderness right Neuro oriented x3, CN's II-XII intact bilaterally and no sensory deficits noted Sensorium / Orientation: alert Motor Exam: strength 5/5 throughout Psych mental status grossly normal Skin no rashes or lesions noted and skin turgor normal MDM MDM MDM Narrative Medical decision making narrative: Differential diagnosis includes ureteral calculus, pyelonephritis, muscular strain, gastroenteritis, and pancreatitis. CBC will be obtained to assess for leukocytosis and anemia. Comprehensive metabolic profile will be obtained to assess for electrolyte abnormality, renal function, and hepatic function. Lipase will be obtained to assess for pancreatitis. Urinalysis will be obtained to assess for urinary tract infection and hematuria. CT scan of the abdomen and pelvis will be obtained to assess for ureteral calculus. Lab Data Attestation: I reviewed the patient's lab results. Lab results narrative: CBC was reviewed and was within normal limits. Comprehensive metabolic profile was reviewed and was within normal limits. Lipase was reviewed and was normal at 26. Urinalysis was reviewed. There is no evidence of urinary tract infection or hematuria. Labs: Laboratory Results - last 24 hr 10/11/23 10/11/23 12:25 12:35 WBC 4.6 RBC 4.83 Hgb 13.7 Hct 41.6 MCV 86.1 MCH 28.4 MCHC 32.9 RDW Std Deviation 39.8 RDW Coeff of Jonny 12.7 Plt Count 340 MPV 9.9 Sodium 139 Potassium 3.7 Chloride 107 Carbon Dioxide 29.0 Anion Gap 3 L BUN 9 Creatinine 0.99 Estim Creat Clear Calc 67.18 Est GFR (MDRD) Af Amer 78 Est GFR (MDRD) Non-Af 65 BUN/Creatinine Ratio 9.1 L Glucose 129 H Calcium 9.2 Total Bilirubin 0.40 AST 16 ALT 18 Alkaline Phosphatase 44 L Total Protein 7.3 Albumin 3.6 Globulin 3.7 Albumin/Globulin Ratio 1.0 Lipase 26 Urine Color Yellow Urine Clarity Clear Urine pH 7.0 Ur Specific [place] 1.010 Urine Protein Negative Urine Glucose (UA) Normal Urine Ketones Negative Urine Occult Blood Negative Urine Nitrite Negative Urine Bilirubin Negative Urine Urobilinogen Normal Ur Leukocyte Esterase Negative Urine RBC 0 SEEN Urine WBC 0 SEEN Ur Squamous Epith Cells 0 SEEN Urine Bacteria RARE Urine Mucus 0 SEEN Radiography Diagnostic Testing: Clinical Impression(s) from Imaging Studies Abdomen/Pelvis CT 10/11/23 12:16 IMPRESSION: Negative examination for renal stone. Horseshoe kidney. Moderate stool in the colon. Unremarkable appendix. Electronically Signed: Doreen Rubio MD at 12:59 EST , CT scan of the abdomen pelvis was obtained. There is no evidence of ureteral calculus. There is no bowel obstruction. There is no free air or free fluid. There is moderate stool in the colon. There is no evidence of appendicitis. This was interpreted by the radiologist and was also independently reviewed by myself. Treatment and Re-Evaluation :: Patient was given IV fluids and Toradol. Patient was feeling better on reevaluation. Patient was advised of her findings. Patient was given a prescription for a short course of [place]. Patient was instructed to complete her antibiotics. Patient was instructed to use ice to her back. Patient was instructed to follow-up with her primary care physician in 5 to 7 days. Patient understood and was agreeable with the plan. All questions were answered. Discharge Plan Triage Chief Complaint: Complaint ED Provider: Chago Ashley Dx/Rx/DC Orders Clinical Impression: Strain of lumbar region, Acute low back pain Instructions: ED Back Sprain/Strain Prescriptions: New hydrocodone-acetaminophen [hydrocodone-acetaminophen] 5-325 mg tablet 1 tab PO Q6H PRN PRN (Reason: Pain) 3 Days Qty: 10 0RF No Action alprazolam [Xanax] 0.25 mg tablet 0.25 mg PO DAILY PRN (Reason: anxiety) Qty: 30 0RF nitrofurantoin monohyd/m-cryst 100 mg capsule 1 cap PO Q12H 7 Days Qty: 14 0RF Rx Instructions: administer with a meal/food; swallow whole; do not open, crush, dissolve , or chew cyclobenzaprine 10 mg tablet 10 mg PO TID PRN (Reason: muscle spasm) 5 Days Qty: 20 0RF naproxen 500 mg tablet 500 mg PO BID PRN (Reason: migraine headache) Qty: 180 2RF amitriptyline 25 mg tablet 25 mg PO DAILY Qty: 90 2RF paroxetine HCl [Paxil] 20 mg tablet 20 mg PO DAILY Qty: 90 2RF Aimovig Autoinjector 70 mg/mL auto-injector 70 mg subcut QMONTH Qty: 1 3RF Stand Alone Forms: ED Work / School Excuse Primary Care Provider: Jaleel Martell Referrals: Jaleel Martell MD [Primary Care Provider] - 5-7 Days Disposition Disposition: Home, Self Care
--- NOTE | 2023-10-11 12:16 | CT_ITS ---
HISTORY: Flank pain. TECHNIQUE: Helically acquired images were obtained of the abdomen and pelvis without oral or IV contrast. A radiation dose optimization technique was used for this scan. 432 images. COMPARISON: None.. FINDINGS: LOWER CHEST: Lung bases clear. BOWEL: Bowel including appendix nondilated. Moderate stool in the colon. No focal pericolonic inflammatory change. PERITONEUM: No significant free fluid. LIVER: Unremarkable. GALLBLADDER/BILIARY TREE: Gallbladder present. SPLEEN/PANCREAS/ADRENAL GLANDS: Nonenlarged. KIDNEYS AND URETERS: Horseshoe kidney. No nephrolithiasis or obstructing ureteral calculus. VESSELS: No abdominal aortic aneurysm. PELVIC ORGANS: Absent or diminutive uterus. BONES: Intact. CT/Abdomen/Pelvis without Cont IMPRESSION: Negative examination for renal stone. Horseshoe kidney. Moderate stool in the colon. Unremarkable appendix. Electronically Signed: Doreen Rubio MD at 12:59 EST ,
[2023-10-11] MEDS: 0.9% Normal Saline (1000mL) 1,000 ML 1000 ML IV (12:32)
[2023-10-11] MEDS: Ketorolac 30 MG/ML Syringe IV (12:32)
--- OUTSIDE RECORDS SUMMARY | 2023-10-11 12:37 | XMS RPT_ITS | CCD ---
Author Name Unknown Address [address] [place] [address] Organization [facility] Care Team Providers Care Greenhouse Manager Name Role Phone Margoth Sloan Unavailable Prashant Carolina Unavailable Florencio Eldridge Unavailable Naomi Burt Unavailable Unavailable Akilah Ulloa Unavailable Unavailable Mari Lee Unavailable Sales Representative [employer] Unavailable Unavailable Unavailable Unavailable Allergies Allergy [...] 07-21-2013 End: 07-21-2013 Phone Encounter Margoth Kilpatrick [facility] Start: 07-20-2013 End: 07-20-2013 Office outpatient visit 15 minutes Margoth [facility] Start: 02-04-2013 End: 02-04-2013 Patient encounter procedure Margoth [facility] Start: 02-02-2013 End: 02-02-2013 Patient encounter procedure Margoth [facility] Start: 01-31-2013 End: 01-31-2013 Office outpatient visit 25 minutes Margoth [facility] Start: 01-31-2013 End: 01-31-2013 Annotation/Addendum Margoth Kilpatrick [employer] [facility] Start: 01-28-2013 End: 01-28-2013 Office outpatient visit 25 minutes Margoth [facility] Start: 12-30-2012 End: 12-30-2012 Patient encounter procedure Margoth Kil[facility] Start: 08-05-2012 End: 08-06-2012 Patient encounter procedure Margoth Kil[facility] Start: 03-24-2012 End: 03-24-2012 Patient encounter procedure Margoth Sloan [facility] Start: 01-23-2012 End: 01-23-2012 Patient encounter procedure Margoth Sloan [facility] Start: 01-20-2012 End: 01-20-2012 Office outpatient visit 40 minutes Margoth Luther [facility] Start: 01-19-2012 End: 01-19-2012 Office outpatient visit 25 minutes Margoth Luther [facility] Start: 01-19-2012 End: 01-19-2012 Annotation/Addendum Margoth Luther [facility] [employer] [facility] Start: 01-02-2012 End: 01-02-2012 Office outpatient visit 25 minutes Margoth Luther [facility] Start: 10-07-2011 End: 10-07-2011 Phone Encounter Margoth Luther [facility] [employer] [facility] Start: 10-01-2011 End: 10-01-2011 Office outpatient visit 25 minutes Margoth Luther [facility] Start: 07-21-2011 End: 07-21-2011 Patient encounter procedure Margoth Luther [facility] Start: 03-18-2011 End: 03-18-2011 Office outpatient visit 15 minutes Margoth Sloan [facility] Start: 12-13-2010 End: 12-13-2010 Office outpatient visit 25 minutes Margoth Luther [facility] Start: 12-06-2010 End: 12-06-2010 Office outpatient visit 25 minutes Margoth Luther [facility] Start: 07-17-2010 End: 07-18-2010 Patient encounter procedure Margoth Luther [facility] Start: 03-08-2010 End: 03-08-2010 Office outpatient visit 10 minutes Margoth Sloan [facility] Start: 10-23-2009 End: 10-23-2009 Office outpatient visit 25 minutes Margoth Luther [facility] Start: 12-06-2008 End: 12-06-2008 Patient encounter procedure Margoth Luther [facility] Start: 12-06-2008 End: 12-06-2008 Historical Summary Margoth Kilpatrick [employer] Procedures Date Procedure Procedure Detail Performing Clinician partial hysterectomy 04/2013 [facility] Naomi Burt Plan of Treatment Date Care [...] 25 hydroxy includes fractions if performed CALCIFEDIOL (01209) [facility] Work Phone: Start: 12-13-2010 Patient Education Low Blood Sugar (Hypoglycemia) *: blood glucose [facility] Work Phone: Start: 12-13-2010 Provider Instructions for Treatment [facility] Work Phone: Start: 12-06-2010 Provider Instructions for Treatment FOLLOW UP IN 1 WEEK [facility] Work Phone: Start: 12-06-2010 Glucose [Mass/Vol] Blood Glucose , Office (50274) [facility] Work Phone: Start: 12-06-2008 [...] BE BASED ON THE PRIMARY CLINICAL RECORDS. [facility]. provides no warranty or guarantee of the accuracy or completeness of information in this document.
[2023-10-11 12:42] LABS: Mucous, Urine 0 SEEN /hpf (<or=2+); Red Blood Cells-Urine 0 SEEN /hpf (0-5); Squamous Epithelial Cells - UA 0 SEEN /hpf (5-10); White Blood Cells 0 SEEN /hpf (0-5)
[2023-10-11 12:44] LABS: Hematocrit 41.6 % (37-47); Hemoglobin 13.7 g/dL (12.0-15.0); Mean Corp Hgb Conc 32.9 g/dL (32-36); Mean Corpuscular Hgb 28.4 pg (27.0-32.0); Mean Corpuscular Volume 86.1 fL (81-99); Mean Platelet Vol. 9.9 fl (6.2-12.0); Platelet Count 340 K/mm3 (150-450); RBC Distribution Width CV 12.7 % (11.6-14.6); RBC Distribution Width SD 39.8 fl (35.1-43.9); Red Blood Count 4.83 M/mm3 (4.2-5.4); White Blood Count 4.6 K/mm3 (4.4-11.0)
[2023-10-11 13:05] LABS: AST(SGOT) 16 U/L (15-37); Alanine Aminotransfer ALT/SGPT 18 U/L (13-56); Albumin, Serum 3.6 g/dL (3.2-5.0); Alkaline Phosphatase 44 U/L (45-117); Anion Gap 3 (5-15); BUN 9 mg/dL (7-18); BUN/Creat Ratio 9.1 RATIO (10-20); Calcium,Total 9.2 mg/dL (8.5-10.1); Chloride 107 mmol/L (98-107); Creatinine, Serum 0.99 mg/dL (0.55-1.02); EST Glomerular Filtration Rate 65 mL/min (>60); Est Glom Filt Rate - Afr Amer 78 mL/min (>60); Estimated Creatinine Clearance 67.18 ml/min; Globulin 3.7 g/dL (2.2-4.2); Glucose 129 mg/dL (74-106); Lipase 26 U/L (13-75); Potassium 3.7 mmol/L (3.5-5.1); Protein, Total 7.3 g/dL (6.4-8.2); Sodium Level 139 mmol/L (136-145)
[2023-10-11 13:19] LABS: Color, Urine Yellow (Yellow); Glucose, Dipstick Normal (Normal); Ketone-Dipstick Negative (Negative); Leukocyte Esterase-Dipstick Negative /ul (Negative); Nitrite-Dipstick Negative (Negative); Occult Blood-Urine Negative /ul (Negative); Protein-Dipstick Negative (Negative); Urine Bilirubin Dipstick Negative (Negative); Urine Clarity Clear (Clear); Urine Urobilinogen Normal (Normal)
[2023-10-11 13:20] LABS: Bacteria RARE /hpf (None Seen)
== END 2023-10-11 13:54 | disposition home or self-care (01) ==
PROVIDERS: Emergency Provider Emergency Medicine; PCP Internal Medicine; Visit Provider Emergency Medicine
DX: S39.012A Strain of muscle, fascia and tendon of lower back, initial encounter (principal); X58.XXXA Exposure to other specified factors, initial encounter; R39.15 Urgency of urination; F17.290 Nicotine dependence, other tobacco product, uncomplicated; Z79.899 Other long term (current) drug therapy
CPT/HCPCS: 74176; 80053; 81001; 83690; 85027; 96361; 96374; 99283; J7030; A4216

== ENCOUNTER → 2023-12-02 | Outpatient (CLI) | payer OTHER, SELFPAY ==
[2023-12-02 11:53] LABS: Bacteria 0 SEEN /hpf (None Seen); Mucous, Urine 0 SEEN /hpf (<or=2+); Red Blood Cells-Urine 0 SEEN /hpf (0-5); White Blood Cells 0 SEEN /hpf (0-5)
[2023-12-02 13:10] LABS: T4 Free Direct 0.76 ng/dL (0.76-1.46); Thyroid Stim Hormone (TSH) 1.75 uIU/mL (0.358-3.74)
[2023-12-02 16:08] LABS: Color, Urine Yellow (Yellow); Glucose, Dipstick Normal (Normal); Ketone-Dipstick Negative (Negative); Leukocyte Esterase-Dipstick 500 /ul (Negative); Nitrite-Dipstick Negative (Negative); Occult Blood-Urine 10 /ul (Negative); Protein-Dipstick Negative (Negative); Specific Gravity, Urine 1.005 (1.002-1.030); Urine Bilirubin Dipstick Negative (Negative); Urine Clarity Clear (Clear); Urine Urobilinogen Normal (Normal)
[2023-12-02 16:54] LABS: Squamous Epithelial Cells - UA 0-5 SEEN /hpf (5-10)
== END | disposition home or self-care (01) ==
LOC: BIMLAB 11:44
PROVIDERS: PCP Internal Medicine; Visit Provider Internal Medicine
DX: Z13.29 Encounter for screening for other suspected endocrine disorder (principal); R30.0 Dysuria
CPT/HCPCS: 36415; 81001; 84439; 84443; 87086

== ENCOUNTER → 2024-03-25 | Outpatient (CLI) | payer OTHER, SELFPAY ==
[2024-03-25 16:36] LABS: Absolute Neutrophil Count 3.7 X10^3/uL (2.0-7.7); Basophil# 0.03 X10^3/uL; Basophil% 0.5 % (0-1); Eosinophils% 1.6 % (0-5); Hematocrit 39.6 % (37-47); Lymphocyte % 27.7 % (19-41); Mean Corp Hgb Conc 32.8 g/dL (32-36); Mean Corpuscular Hgb 28.5 pg (27.0-32.0); Mean Corpuscular Volume 86.8 fL (81-99); Monocyte# 0.55 X10^3/uL; NRBC Flagged by Analyzer 0 % (0-5); Neutrophil # 3.74 X10^3/uL (2.7-7.7); Platelet Count 320 K/mm3 (150-450); RBC Distribution Width CV 13.2 % (11.6-14.6); RBC Distribution Width SD 41.2 fl (35.1-43.9); Red Blood Count 4.56 M/mm3 (4.2-5.4); White Blood Count 6.1 K/mm3 (4.4-11.0)
[2024-03-25 17:07] LABS: ALB/GLOB Ratio 1.1 RATIO (0.9-2.4); AST(SGOT) 16 U/L (15-37); Alanine Aminotransfer ALT/SGPT 20 U/L (13-56); Albumin, Serum 3.7 g/dL (3.2-5.0); Alkaline Phosphatase 46 U/L (45-117); Anion Gap 9 (5-15); BUN 11 mg/dL (7-18); BUN/Creat Ratio 11.3 RATIO (10-20); Calcium,Total 9.1 mg/dL (8.5-10.1); Chloride 105 mmol/L (98-107); Creatinine, Serum 0.97 mg/dL (0.55-1.02); EST Glomerular Filtration Rate 66 mL/min (>60); Est Glom Filt Rate - Afr Amer 80 mL/min (>60); Globulin 3.5 g/dL (2.2-4.2); Glucose 105 mg/dL (74-106); Potassium 3.9 mmol/L (3.5-5.1); Protein, Total 7.2 g/dL (6.4-8.2); Sodium Level 138 mmol/L (136-145); T4 Free Direct 0.79 ng/dL (0.76-1.46); Thyroid Stim Hormone (TSH) 0.89 uIU/mL (0.358-3.74)
== END | disposition home or self-care (01) ==
LOC: BIMLAB 15:00
PROVIDERS: PCP Internal Medicine; Referring Provider Internal Medicine; Visit Provider Internal Medicine
DX: F41.9 Anxiety disorder, unspecified (principal); F32.9 Major depressive disorder, single episode, unspecified
CPT/HCPCS: 36415; 80053; 84439; 84443; 85025

== ENCOUNTER 2024-06-23 14:17 | Emergency (ER) | payer OTHER, SELFPAY ==
[2024-06-23 14:17] VITALS: BP 135/88; PULSE 76; RESP 15; TEMP 36.4; O2SAT 96; BMI 28.2
[2024-06-23 16:17] VITALS: BP 129/86; PULSE 80; RESP 20; O2SAT 98
[2024-06-23 18:00] VITALS: BP 136/87; PULSE 66; RESP 16; O2SAT 94
--- NOTE | 2024-06-23 18:08 | EX.ED.DYSGE1 ---
HPI History of Present Illness Chief Complaint: Headache Narrative Narrative: Chief complaint and HPI: Migraine. 44-year-old female with history of migraines presents for evaluation of a migraine. Patient states she follows with neurology. Patient states about 5 days ago she developed a migraine. She has been taking her home medications with little relief. She states on Thursday she called her neurologist who wrote her for a steroid taper. She states the migraine has continued so she called his office today who recommended management in the emergency department. Patient endorses photophobia, numbness/tingling in the face, nausea. She states numbness and tingling in her face is typical for her migraines and that this is not new. She also has some slight pressure behind her right eye which is typical of her ocular migraines. Denies vision changes. She denies any head trauma or lightheadedness. Denies any neurological deficits or weakness. Denies any fever, chills, shortness of breath, chest pain, abdominal pain. Review of systems: See HPI Medications: As listed on the chart Allergies: As listed on the chart PFSH: Per chart Vital signs: As listed on the chart. Reviewed. Physical exam: Gen: A&O x3, NAD but sitting in the room with the lights off Head: Normocephalic, atraumatic Eyes: No sclera icterus, conjunctiva clear, PERRL, EOMI ENT: Moist mucous membranes Neck: Trachea midline, No JVD CV: RRR, no murmurs, no peripheral edema Resp: Lungs CTA BL, no w/r/c GI: Abd soft, non-distended, non-tender, no r/r/g Musc: Full ROM, no deformity Skin: Warm, dry Neuro: Alert, oriented, grossly intact, sensation intact Psych: Cooperative, appropriate mood and affect [facility] Medical History (Updated 06/23/24 @ 19:[address] Casey Yousif, ) Colon cancer screening Dry scalp Dermatitis Burning with urination Left wrist sprain Headache CLAUDIA (acute kidney injury) Screening for thyroid disorder Chronic fatigue Hypokalemia Health care maintenance Elevated blood pressure reading Cervical radiculopathy Right shoulder pain Endometriosis History of spontaneous History of gestational diabetes Depression Vitamin deficiency Hypoglycemia Anxiety Migraines Home Medications ?Medication ?Instructions ?Recorded ?Last Taken ?Type erenumab-aooe 70 mg/mL 70 mg subcut QMONTH #1 mL 03/13/23 Unknown Rx subcutaneous auto-injector (Aimovig Autoinjector) alprazolam 0.25 mg tablet (Xanax) 0.25 mg PO DAILY PRN anxiety #20 12/02/23 Unknown Rx tabs naproxen 500 mg tablet 500 mg PO BID PRN migraine 05/05/24 Unknown Rx headache #180 tabs paroxetine HCl 30 mg tablet 30 mg PO DAILY #90 tabs 05/05/24 Unknown Rx Allergy/AdvReac Type Severity Reaction Status Date / Time Penicillins Allergy Hives Verified 06/23/24 14:19 Family History Grandmother Breast cancer Father Anxiety and depression Diabetes History of open heart surgery Sister Cancer leukemia Mother Diabetes Hypertension Kidney disease Hyperlipemia CVA (cerebral vascular accident) Other Migraines Surgical History History of varicose vein stripping History of partial hysterectomy Social History Smoking Status: Light Smoker (<10/day) Tobacco: How many years used: 22 Electronic Cigarette Use: with nicotine alcohol intake: current alcohol intake frequency: a few times a month Alcohol type: wine substance use type: does not use what type of physical activity do you participate in: walking frequency: 1-2 times per week EXAM Physical Exam Const Vital Signs: 06/23/24 14:17 06/23/24 16:17 06/23/24 18:00 Temperature 97.6 F L Temperature Source Temporal Pulse Rate 76 80 66 Respiratory Rate 15 20 H 16 Blood Pressure 135/88 H 129/86 H 136/87 H Blood Pressure Mean 103 100 103 Pulse Ox 96 98 94 Oxygen Delivery Method Room Air Room Air Room Air 06/23/24 20:00 06/23/24 20:04 Temperature 97.9 F Temperature Source Pulse Rate 65 65 Respiratory Rate 16 16 Blood Pressure 115/78 115/78 Blood Pressure Mean 90 90 Pulse Ox 96 96 Oxygen Delivery Method Room Air MDM MDM MDM Narrative Medical decision making narrative: 44-year-old female presents for evaluation of migraine with known history of migraines. She states she feels like she is having an ocular migraine which she gets often. She follows with neurology. Given that patient has had no head trauma and that her symptoms are of her typical migraine I do not think any imaging of the head is needed at this time. Will treat patient symptomatically for her migraine. Given that she has history of ocular migraines will place 100% oxygen with nonrebreather for about 30 minutes to see if this helps with improvement. NS bolus, Reglan, Benadryl, Toradol ordered for symptoms. On reevaluation, patient states her migraine has improved significantly. Patient was educated that she needs to follow-up with her neurologist and PCP. She confirmed understand the plan. Patient is stable to discharge home. Impression: 1. Migraine 2. History of migraines Discharge Plan Triage Chief Complaint: Headache ED Provider: Casey Yousif Dx/Rx/DC Orders Clinical Impression: Migraines Instructions: ED Headache Unspecified Prescriptions: No Action alprazolam [Xanax] 0.25 mg tablet 0.25 mg PO DAILY PRN (Reason: anxiety) Qty: 20 0RF paroxetine HCl 30 mg tablet 30 mg PO DAILY Qty: 90 1RF naproxen 500 mg tablet 500 mg PO BID PRN (Reason: migraine headache) Qty: 180 2RF Aimovig Autoinjector 70 mg/mL auto-injector 70 mg subcut QMONTH Qty: 1 3RF Primary Care Provider: Jaleel Martell Referrals: Jaleel Martell MD [Primary Care Provider] - 3-5 Days Print Language: Frisian Disposition Disposition: Home, Self Care Discharge Date/Time: 06/23/24 20:08
[2024-06-23] MEDS: 0.9% Normal Saline (1000mL) 1,000 ML 999 ML IV (18:20)
[2024-06-23] MEDS: DiphenhydrAMINE 50 MG/ML Syringe 25 MG IV (18:20)
[2024-06-23] MEDS: Ketorolac 15 MG/ML Vial IV (18:20)
[2024-06-23] MEDS: Metoclopramide 10 MG/2 ML Vial IV (18:20)
[2024-06-23 20:00] VITALS: BP 115/78; PULSE 65; RESP 16; O2SAT 96
[2024-06-23 20:04] VITALS: BP 115/78; PULSE 65; RESP 16; TEMP 36.6; O2SAT 96
== END 2024-06-23 20:08 | disposition home or self-care (01) ==
PROVIDERS: Emergency Provider Surgery; PCP Internal Medicine; Visit Provider Surgery
DX: G43.909 Migraine, unspecified, not intractable, without status migrainosus (principal); F17.210 Nicotine dependence, cigarettes, uncomplicated
CPT/HCPCS: 96361; 96374; 96375; 99282; J7030; A4216

== ENCOUNTER 2024-06-27 08:06 | Emergency (ER) | payer OTHER, SELFPAY ==
[2024-06-27 08:07] VITALS: BP 157/97; PULSE 75; RESP 18; TEMP 36.6; O2SAT 100; BMI 27.5
--- NOTE | 2024-06-27 08:34 | EDS_ITS ---
HPI History of Present Illness Chief Complaint: Headache Informant: patient Narrative Narrative: Patient is a 44-year-old female with history of depressions, anxiety and migraines presenting with persistent and worsening migraine headache. Patient states she has had this headache now for 9 days. She follows with neurology in Dr. Asael Bajwa. She states that she has been trying naproxen 500 mg as well as rizatriptan with no relief. Patient states last night she did 2 doses of the rizatriptan and it made her fall asleep at her migraine continued. She states that she was seen on 06/23 in our ER for the same complaint. She received a migraine cocktail and felt better but her headache never completely resolved. It slowly been worsening again since. She has associated photo and phonophobia. She states the pain is in the back of her head and feels like her head is in a vice or being smashed in. It sometimes rated to the top of her head. Denies any fever, nausea or vomiting. 90 vision changes. States that her whole head and face feel tingly but is typical for her. Is having some pain in her left arm but attributes that to where her IV was before. Did finish steroid taper yesterday which was prescribed by her neurologist with no relief. Notes that about 5 months ago she had a full workup including MRI for her headaches which was largely negative. Called her neurologist today who said there is nothing that they could do acutely and recommend she come back to the emergency room. [facility] Medical History Colon cancer screening Dry scalp Dermatitis Burning with urination Left wrist sprain Headache CLAUDIA (acute kidney injury) Screening for thyroid disorder Chronic fatigue Hypokalemia Health care maintenance Elevated blood pressure reading Cervical radiculopathy Right shoulder pain Endometriosis History of spontaneous History of gestational diabetes Depression Vitamin deficiency Hypoglycemia Anxiety Migraines Home Medications ?Medication ?Instructions ?Recorded ?Last Taken ?Type erenumab-aooe 70 mg/mL 70 mg subcut QMONTH #1 mL 03/13/23 Unknown Rx subcutaneous auto-injector (Aimovig Autoinjector) alprazolam 0.25 mg tablet (Xanax) 0.25 mg PO DAILY PRN anxiety #20 12/02/23 Unknown Rx tabs naproxen 500 mg tablet 500 mg PO BID PRN migraine 05/05/24 Unknown Rx headache #180 tabs paroxetine HCl 30 mg tablet 30 mg PO DAILY #90 tabs 05/05/24 Unknown Rx Allergy/AdvReac Type Severity Reaction Status Date / Time Penicillins Allergy Hives Verified 06/27/24 08:09 Family History Grandmother Breast cancer Father Anxiety and depression Diabetes History of open heart surgery Sister Cancer leukemia Mother Diabetes Hypertension Kidney disease Hyperlipemia CVA (cerebral vascular accident) Other Migraines Surgical History History of varicose vein stripping History of partial hysterectomy Social History Smoking Status: Light Smoker (<10/day) Tobacco: How many years used: 22 Electronic Cigarette Use: with nicotine alcohol intake: current alcohol intake frequency: a few times a month Alcohol type: wine substance use type: does not use what type of physical activity do you participate in: walking frequency: 1-2 times per week ROS ROS ED Constitutional Constitutional ED: Denies chills or fever(s) Eyes Eyes: Denies blurry vision or change in vision ENT ENT ED: Denies rhinorrhea or sore throat Cardiovascular Cardiovascular: Denies chest pain Respiratory/Chest Respiratory/Chest: Denies cough Gastrointestinal Gastrointestinal: Denies nausea or vomiting Musculoskeletal Musculoskeletal: Reports other Details: left arm pain after IV placed ; Denies arthralgias Integumentary Denies rash Neurologic Neurologic: Reports headache(s) and paresthesias; Denies weakness Psychiatric Psychiatric: Reports anxiety and depression Hematologic/Lymphatic Hematologic/Lymphatic: Denies easy bleeding or easy bruising EXAM Physical Exam Const Vital Signs: 06/27/24 08:07 06/27/24 10:07 Temperature 97.9 F Temperature Source Oral Pulse Rate 75 78 Respiratory Rate 18 16 Blood Pressure 157/97 H 138/81 H Blood Pressure Mean 117 100 Pulse Ox 100 99 Oxygen Delivery Method Room Air Room Air Positive well nourished and well developed General Appearance ED: well developed and NAD HEENT Reports normocephalic, TM's clear and moist mucous membranes atraumatic Tympanic Membrane ED: Yes TM's clear Eyes PERRL and EOMs intact bilaterally Neck supple and no meningeal signs Neck Narrative: Very mild tenderness palpation at the base of the skull bilaterally. No meningeal signs however. General: tenderness Resp normal respiratory effort and clear to auscultation bilaterally Cardio regular rate and regular rhythm GI non-tender and non-distended Extremity normal to inspection and full ROM Neuro oriented x3, CN's II-XII intact bilaterally and no sensory deficits noted Sensorium / Orientation: awake and alert Motor Exam: strength 5/5 throughout and general weakness Psych mental status grossly normal MDM MDM MDM Narrative Medical decision making narrative: Patient valuate for continued migraine headache that has been worsening. Will give migraine cocktail including IV fluids, Compazine, Benadryl, Toradol and IV Decadron and reevaluate. Given that she had a recent full workup for her headaches 5 months ago I do not think she requires any repeat imaging or evaluation at this time. Patient feels significantly improved on repeat evaluation. Will be discharged home with outpatient neurology follow-up. Given return precautions. Discharged home in stable condition. Discharge Plan Triage Chief Complaint: Headache ED Provider: Yessenia Chamberlain Dx/Rx/DC Orders Clinical Impression: Migraines Instructions: ED, Migraine (Classical) Prescriptions: No Action alprazolam [Xanax] 0.25 mg tablet 0.25 mg PO DAILY PRN (Reason: anxiety) Qty: 20 0RF paroxetine HCl 30 mg tablet 30 mg PO DAILY Qty: 90 1RF naproxen 500 mg tablet 500 mg PO BID PRN (Reason: migraine headache) Qty: 180 2RF Aimovig Autoinjector 70 mg/mL auto-injector 70 mg subcut QMONTH Qty: 1 3RF Primary Care Provider: Jaleel Martell Referrals: Jaleel Martell MD [Primary Care Provider] - Activity Restrictions/Additional Instructions: Please continue to follow-up with your neurologist. Return if you have progression of your symptoms or further concerns. Print Language: Belarusian Disposition Disposition: Home, Self Care
[2024-06-27] MEDS: DiphenhydrAMINE 50 MG/ML Syringe 25 MG IV (09:23)
[2024-06-27] MEDS: Ketorolac 15 MG/ML Vial IV (09:23)
[2024-06-27] MEDS: proCHLORPERazine 10 MG/2 ML Vial IV (09:24)
[2024-06-27] MEDS: 0.9% Normal Saline (1000mL) 1,000 ML 999 ML IV (09:24)
[2024-06-27] MEDS: dexAMETHasone 4 MG/ML Vial IV (09:24)
[2024-06-27 10:07] VITALS: BP 138/81; PULSE 78; RESP 16; O2SAT 99
[2024-06-27 11:46] VITALS: BP 140/74; PULSE 57; RESP 18; TEMP 35.9; O2SAT 96
== END 2024-06-27 11:49 | disposition home or self-care (01) ==
PROVIDERS: Emergency Provider Emergency Medicine; PCP Internal Medicine; Visit Provider Emergency Medicine
DX: G43.909 Migraine, unspecified, not intractable, without status migrainosus (principal); F17.290 Nicotine dependence, other tobacco product, uncomplicated
CPT/HCPCS: 96361; 96374; 96375; 99282; J7030

== ENCOUNTER 2024-09-16 08:42 | Day surgery (SDC) | payer OTHER, SELFPAY ==
[2024-09-16] VITALS (8 sets, daily range): BP systolic 100–129; BP diastolic 69–95; PULSE 71–94; RESP 16; TEMP 36.3–36.9; O2SAT 96–100; BMI 29.0
--- NOTE | 2024-09-16 09:06 | PRE.ANES_ITS ---
ASA Classification* ASA Classification ASA Classification: 2 Assessment & Plan Anesthesia* Anesthesia Assessment Anesthesia Assessment: Discussed sedation and/or anesthesia options, risks, benefits, and alternatives with patient/parents/legal guardian/POA. Questions invited. The patient/parents/legal guardian/POA seems to understand and agrees to proceed with anesthesia plan. Reviewed the physical assessment, medical history, allergy history and patient home medications list prior to surgery/procedure/anesthetic and documented any changes. Performed airway and anesthesia risk assessments. Anesthesia Type Anesthesia Type: MAC Anesthesia Focused Assessment* Airway Assessment Mouth opens: >3 cm Mallampati Score: III Focused Labs Anesthesia Preop lab: CBC WBC 6.1 K/mm3 (4.4-11.0) 03/25/24 15:01 RBC 4.56 M/mm3 (4.2-5.4) 03/25/24 15:01 Hgb 13.0 g/dL (12.0-15.0) 03/25/24 15:01 Hct 39.6 % (37-47) 03/25/24 15:01 Plt Count 320 K/mm3 (150-450) 03/25/24 15:01 CHEMISTRY Potassium 3.9 mmol/L (3.5-5.1) 03/25/24 15:01 Sodium 138 mmol/L (136-145) 03/25/24 15:01 BUN 11 mg/dL (7-18) 03/25/24 15:01 Creatinine 0.97 mg/dL (0.55-1.02) 03/25/24 15:01 Glucose 105 mg/dL (74-106) 03/25/24 15:01 TSH 0.89 uIU/mL (0.358-3.74) 03/25/24 15:01 COAG PT 13.0 SECONDS (11.9-14.4) 04/04/13 11:52 Pre-Assessment Diagnosis/Proposed Procedure Planned Operative Procedure(s): COLONOSCOPY-OA Anesthesia History Anesthesia History - medicaid collection specialist: Anesthesia History - medicaid collection specialist Hx Hospitalization No 09/14/24 12:23 Any Problems With Anesthesia No 09/14/24 12:23 Cholinesterase deficiency No 09/14/24 12:23 You/Your Family Experience No 09/14/24 12:23 fever (hyperthermia) with Relationship Recent Exposure to Contagious No 10/23/20 11:12 Disease Does patient have nerve No 09/14/24 12:23 stimulator Patient instructed to have device shut off --Does patient have Pacemaker or ICD? When Was Last Pacemaker Check QUESTION #4 FULL TEXT: You/Your Family Experience fever (hyperthermia) with Anesthesia Last Oral Intake Last Oral intake: Last Oral Intake NPO since Meds taken in AM with sips of water? Meds patient instructed to take am of surgery PONV PONV - medicaid collection specialist: PONV - medicaid collection specialist Female Yes 09/14/24 12:23 HX of Motion Sickness No 09/14/24 12:23 HX of N/V After Surgery No 09/14/24 12:23 Non-Smoker Yes 09/14/24 12:23 Duration of Surgery greater No 09/14/24 12:23 than 60 minutes Number of Risk Factors 2 09/14/24 12:23 PONV Score Moderate Risk 09/14/24 12:23 Height & Weight Height & Weight: Anesthesia: Height & Weight Height 5 ft 7 in 08/11/24 16:58 Respiratory Assessment Respiratory Assessment - medicaid collection specialist: Respiratory Tract Infection Hx - medicaid collection specialist Hx Respiratory Tract Infection No 09/14/24 12:23 STOP Sleep Apnea STOP Sleep Apnea - medicaid collection specialist: STOP Sleep Apnea - medicaid collection specialist Hx Hypertension No 09/14/24 12:23 Hx Sleep Apnea No 09/14/24 12:23 CPAP No 09/14/24 12:23 BIPAP No 09/14/24 12:23 Do you snore loudly (louder Yes 09/14/24 12:23 than talking or can be heard Do you often feel tired/ No 09/14/24 12:23 fatigued/ sleepy during daytime? Has anyone observed you stop No 09/14/24 12:23 breathing during sleep? STOP Results Negative 09/14/24 12:23 QUESTION #5 FULL TEXT : Do you snore loudly (louder than talking or can be heard through closed doors)? Tobacco Use History Tobacco Use History - medicaid collection specialist: Tobacco Use History - medicaid collection specialist Tobacco Use Smoking Status Light Smoker (<10/day) 09/14/24 12:23 Hx Tobacco Use Yes 09/14/24 12:23 Years Smoking Packs Smoked per Day Smoking Cessation Date was within the last 15 years Hx Smoking Cessation Date Hx Smoking Cessation Counseling Hematologic Medial History Hematologic Hx - medicaid collection specialist: Hematologic Medical Hx - technical documentation specialist Hx of Blood Transfusion No 09/14/24 12:23 Hx of Transfusion in last 3 No 09/14/24 12:23 Months Date of Last Transfusion (if within last 3 months) Ever experience any problems No 09/14/24 12:23 with transfusion(s)? Specify any problems Hx of Preganancy in last 3 No 09/14/24 12:23 Months Nurse Filling Out Transfusion VCHRISTIN 09/14/24 12:23 & Questions: Date: 09/14/24 09/14/24 12:23 Time: 12:24 09/14/24 12:23 Patient unable to answer at this time (ie. confused, unrespo /Reproduction History /Reproductive History - medicaid collection specialist: /Reproductive Hx- medicaid collection specialist Hx Now No 09/14/24 12:23 Gestational Age (in weeks): EDC: Hx Hx Para Hx Section SAB No 09/14/24 12:23 PFSH Medical History Wears dentures Wears glasses Alcohol use Electronic cigarette use Former smoker History of stress test Back pain Colon cancer screening Dry scalp Dermatitis Burning with urination Left wrist sprain Headache CLAUDIA (acute kidney injury) Screening for thyroid disorder Chronic fatigue Hypokalemia Health care maintenance Elevated blood pressure reading Cervical radiculopathy Right shoulder pain Endometriosis History of spontaneous History of gestational diabetes Depression Vitamin deficiency Hypoglycemia Anxiety Migraines Home Medications ?Medication ?Instructions ?Recorded ?Last Taken ?Type alprazolam 0.25 mg tablet (Xanax) 0.25 mg PO DAILY PRN anxiety #20 12/02/23 Unknown Rx tabs naproxen 500 mg tablet 500 mg PO BID PRN migraine 05/05/24 Unknown Rx headache #180 tabs paroxetine HCl 30 mg tablet 30 mg PO DAILY #90 tabs 05/05/24 Unknown Rx amitriptyline 10 mg tablet 25 mg PO QDAY 07/26/24 Unknown History rimegepant 75 mg disintegrating 75 mg PO ONCE PRN migraine headache 07/26/24 Unknown History tablet (Nurtec ODT) fremanezumab-vfrm 225 mg/1.5 mL 225 mg subcut QMONTH 08/11/24 Unknown History subcutaneous auto-injector (Ajovy) Allergy/AdvReac Type Severity Reaction Status Date / Time Penicillins Allergy Hives Verified 09/16/24 09:05 Family History Grandmother Breast cancer Father Anxiety and depression Diabetes History of open heart surgery Colon polyps Sister Cancer leukemia Mother Diabetes Hypertension Kidney disease Hyperlipemia CVA (cerebral vascular accident) Other Migraines Surgical History History of varicose vein stripping History of partial hysterectomy Social History household members: spouse current occupational status: employed Smoking Status: Light Smoker (<10/day) Tobacco: How many years used: 22 Electronic Cigarette Use: with nicotine alcohol intake: current alcohol intake frequency: a few times a month Alcohol type: wine substance use type: does not use what type of physical activity do you participate in: walking frequency: 1-2 times per week Review of Systems (Anesthesia) ROS Narrative System reviewed and no additional complaints, except as documented.
--- NOTE | 2024-09-16 10:18 | PCM.HP.STD ---
[facility] - General General Date of Service: 09/16/24 Chief Complaint: Colon cancer screening HPI Narrative YVONNE BAKER, is a 44 F who presents for elective screening colonoscopy. She has never had a previous colonoscopy. She denies any GI issues or complaints. Her father had colon polyps [facility] Medical History Wears dentures Wears glasses Alcohol use Electronic cigarette use Former smoker History of stress test Back pain Colon cancer screening Dry scalp Dermatitis Burning with urination Left wrist sprain Headache CLAUDIA (acute kidney injury) Screening for thyroid disorder Chronic fatigue Hypokalemia Health care maintenance Elevated blood pressure reading Cervical radiculopathy Right shoulder pain Endometriosis History of spontaneous History of gestational diabetes Depression Vitamin deficiency Hypoglycemia Anxiety Migraines Home Medications ?Medication ?Instructions ?Recorded ?Last Taken ?Type alprazolam 0.25 mg tablet (Xanax) 0.25 mg PO DAILY PRN anxiety #20 12/02/23 Unknown Rx tabs naproxen 500 mg tablet 500 mg PO BID PRN migraine 05/05/24 Unknown Rx headache #180 tabs paroxetine HCl 30 mg tablet 30 mg PO DAILY #90 tabs 05/05/24 Unknown Rx amitriptyline 10 mg tablet 25 mg PO QDAY 07/26/24 Unknown History rimegepant 75 mg disintegrating 75 mg PO ONCE PRN migraine headache 07/26/24 Unknown History tablet (Nurtec ODT) fremanezumab-vfrm 225 mg/1.5 mL 225 mg subcut QMONTH 08/11/24 Unknown History subcutaneous auto-injector (Ajovy) Allergy/AdvReac Type Severity Reaction Status Date / Time Penicillins Allergy Hives Verified 09/16/24 09:05 Family History Grandmother Breast cancer Father Anxiety and depression Diabetes History of open heart surgery Colon polyps Sister Cancer leukemia Mother Diabetes Hypertension Kidney disease Hyperlipemia CVA (cerebral vascular accident) Other Migraines Surgical History History of varicose vein stripping History of partial hysterectomy Social History household members: spouse current occupational status: employed Smoking Status: Light Smoker (<10/day) Tobacco: How many years used: 22 Electronic Cigarette Use: with nicotine alcohol intake: current alcohol intake frequency: a few times a month Alcohol type: wine substance use type: does not use what type of physical activity do you participate in: walking frequency: 1-2 times per week Vital Signs Vital Signs Vital Signs: 09/16/24 09:07 09/16/24 09:07 Temperature 97.7 F L Temperature Source Temporal Pulse Rate 94 Respiratory Rate 16 Respiratory Pattern Normal Blood Pressure 129/95 H Blood Pressure Mean 106 Blood Pressure Source Monitor Blood Pressure Position Semi-Fowlers Blood Pressure Location Left Arm Pulse Ox 100 Oxygen Delivery Method Room Air Weight Weight: 185 lb 3.013 oz Body Mass Index (BMI) 29.0 Physical Exam Narrative The patient is alert and oriented x 3. She is in no acute distress. Abdomen is soft, nontender and nondistended. Assessment & Plan Assessment/Plan (1) Colon cancer screening: PLAN: Plan The patient is a 44-year-old female who presents today for screening colonoscopy. She does have a family history of colon polyps. She denies any GI issues or complaints. We reviewed the details of the planned procedure including risks benefits and alternatives. She wished to proceed. This will begin momentarily Charges/Coding Visit Charges Inpatient E&M: 29328 Init Hosp L1
--- NOTE | 2024-09-16 11:01 | OP.COLON_ITS ---
Patient Name: Akilah Russell Procedure Date: 09/16/2024 10:15 AM Date of : 1980 Age: 44 Procedure: Colonoscopy Indications: Screening for colorectal malignant neoplasm Providers: Ananth Dee MD Referring MD: Jaleel Martell MD Medicines: Monitored Anesthesia Care Patient Profile: Refer to note in patient chart for documentation of history and physical. Last Colonoscopy: none. The patient's first colonoscopy is today. Complications: No immediate complications. Estimated blood loss: None. Procedure: Pre-Anesthesia Assessment: - Prior to the procedure, a History and Physical was performed, and patient medications and allergies were reviewed. The patient's tolerance of previous anesthesia was also reviewed. The risks and benefits of the procedure and the sedation options and risks were discussed with the patient. All questions were answered, and informed consent was obtained. Prior Anticoagulants: The patient has taken no anticoagulant or antiplatelet agents. ASA Grade Assessment: II - A patient with mild systemic disease. After reviewing the risks and benefits, the patient was deemed in satisfactory condition to undergo the procedure. After I obtained informed consent, the scope was passed under direct vision. Throughout the procedure, the patient's blood pressure, pulse, and oxygen saturations were monitored continuously. The colonoscope was introduced through the anus and advanced to the cecum, identified by appendiceal orifice and ileocecal valve. The ileocecal valve, appendiceal orifice, and rectum were photographed. The entire colon was well visualized. The colonoscopy was performed without difficulty. The patient tolerated the procedure well. The quality of the bowel preparation was fair. Moderate Sedation: See the other procedure note for documentation of moderate sedation with intraservice time. Scope In: 10:36:19 AM Scope Withdrawal Time 0 hours 7 minutes 31 seconds Scope Out: 10:53:52 AM Total Procedure Duration Time 0 hours 17 minutes 33 seconds Findings: The perianal and digital rectal examinations were normal. The entire examined colon appeared normal on direct and retroflexion views. Impression: - Preparation of the colon was fair. - The entire examined colon is normal on direct and retroflexion views. - No specimens collected. Recommendation: - Discharge patient to home (ambulatory). - High fiber diet. - Return to my office PRN. - Repeat colonoscopy in 10 years for screening purposes. - Continue present medications. Procedure Code(s): --- Professional --- 51777, Colonoscopy, flexible; diagnostic, including collection of specimen(s) by brushing or washing, when performed (separate procedure) Diagnosis Code(s): --- Professional --- Z12.11, Encounter for screening for malignant neoplasm of colon CPT copyright 2021 [employer]. All rights reserved. The codes documented in this report are preliminary and upon certified medical coder review may be revised to meet current compliance requirements. Ananth Dee MD 09/16/2024 11:00:55 AM This report has been signed electronically. Number of Addenda: 0 Note Initiated On: 09/16/2024 10:15 AM
--- NOTE | 2024-09-16 11:01 | OP.CCLET_ITS ---
09/16/2024 Jaleel Martell MD [address] [place] [address] [place] [address] Re : Colonoscopy procedure for Akilah Russell Dear Dr. Martell This procedure was performed on Monday, September 16, 2024. My impressions and recommendations are as follows: Impressions : - Preparation of the colon was fair. - The entire examined colon is normal on direct and retroflexion views. - No specimens collected. Recommendations : - Discharge patient to home (ambulatory). - High fiber diet. - Return to my office PRN. - Repeat colonoscopy in 10 years for screening purposes. - Continue present medications. My findings are described in the full procedure note, which is enclosed. If I can be of further assistance, please feel free to contact me at . Sincerely, Ananth Dee MD 09/16/2024 11:00:55 AM This report has been signed electronically.
--- NOTE | 2024-09-16 11:07 | PCM.POST.ANE ---
Anesthesia: Postop Eval I Current Vital Signs Temperature: 97.4 F Pulse Rate: 74 Blood Pressure: 102/75 Respiratory Rate: 16 Pulse Ox: 97 Oxygen Delivery Method: Room Air Assessment Airway patent: Yes Spontaneous unlabored respirations: Yes Mental status: Asleep nausea: No Vomiting: No Anesthesia Complication: No Fluid Hydration Crystalloid volume administer (ml): 60 Total IV fluid infused: 60 Progress Note Anesthesia document: Postop Eval 1 completed: Yes
--- NOTE | 2024-09-16 11:30 | PCM.POSTANE2 ---
Anesthesia Postop Eval I Sum Postop Eval Completion status Anesthesia document: Postop Eval 1 completed: Yes Anesthesia Postop Eval I Summary Anesthesia Postop Eval I Summary: Anesthesia Postop Eval I: Assessment Summary Airway patent Yes 09/16/24 11:10 [email or web address] Spontaneous unlabored Yes 09/16/24 11:10 [email or web address] respirations Mental status Asleep 09/16/24 11:10 [email or web address] nausea No 09/16/24 11:10 [email or web address] Vomiting No 09/16/24 11:10 [email or web address] Anesthesia Postop Eval I: Fluid Summary Crystalloid volume administer 60 09/16/24 11:10 [email or web address] (ml) Colloids volume administered ( ml) Blood Product volume administered (ml) Total IV fluid infused 60 09/16/24 11:10 [email or web address] Anesthesia Postop Eval I: Summary Notes Anesthesia Complication No 09/16/24 11:10 [email or web address] Anesthesia Complication Comment: Post-operative progress note Anesthesia: Postop Eval II Evaluation Mental status: Awake and Calm Pain Level: 0 nausea: No Vomiting: No Complications Anesthesia Complication: No
== END 2024-09-16 11:51 | disposition home or self-care (01) ==
LOC: EN 08:42 → AC 08:43
PROVIDERS: PCP Internal Medicine; Referring Provider Internal Medicine; Visit Provider Surgery
PROC: 0DJD8ZZ Inspection of Lower Intestinal Tract, Via Natural or Artificial Opening Endoscopic (ICD-10-PCS; CPT 45378; principal; 2024-09-16 09:40)
DX: Z12.11 Encounter for screening for malignant neoplasm of colon (principal); F17.290 Nicotine dependence, other tobacco product, uncomplicated; Z83.719 Family history of colon polyps, unspecified
CPT/HCPCS: 45378; A4216; J2405

== ENCOUNTER → 2025-02-16 | Outpatient (CLI) | payer OTHER, SELFPAY ==
--- NOTE | 2025-02-16 07:15 | BI_ITS ---
EXAM: SCRN MAMM (CAD)W/ANSHU BILAT DATE: 02/16/2025 CLINICAL HISTORY: F, Age 45 y/o , BREAST CANCER SCREENING Grandmother with breast cancer. BREAST CANCER RISK ASSESSMENT: Not assessed. TECHNIQUE: Bilateral screening digital breast tomosynthesis with 2D and 3D images. Computer aided detection. COMPARISON: Prior exam(s) dated May 28, 2022.. FINDINGS: TISSUE DENSITY: The breast tissue is heterogenously dense, which may obscure small masses. Bilateral Breast Mammographic Findings: No significant masses, calcifications or other abnormalities are identified. No suspicious masses, areas of developing architectural distortion, or suspicious calcifications. There has been no significant interval change. BI/SCRN MAMM (CAD)W/ANSHU BILAT IMPRESSION: OVERALL FINAL ASSESSMENT: BIRADS 1 NEGATIVE RECOMMENDATION: Routine annual follow-up in 1 Year A letter with findings and recommendations will be mailed to the patient. Reading Location: [id number]
== END | disposition home or self-care (01) ==
LOC: OPBI 06:58
PROVIDERS: PCP Internal Medicine; Referring Provider Internal Medicine; Visit Provider Internal Medicine
DX: Z12.31 Encounter for screening mammogram for malignant neoplasm of breast (principal); Z80.3 Family history of malignant neoplasm of breast
CPT/HCPCS: 77063; 77067